=== PATIENT | male | born 1995 | race Caucasian/White ===

== ENCOUNTER → 2025-01-13 | Outpatient (CLI) | payer BC, SELFPAY ==
[2025-01-13 15:20] LABS: Erythrocyte Sedimentation Rate 3 mm/hr (0-20)
[2025-01-13 15:23] LABS: Alkaline Phosphatase 67 U/L (40-129)
[2025-01-13 15:30] LABS: CRP < 3.00 mg/L (0.0-3.0)
== END | disposition home or self-care (01) ==
LOC: LAB 13:49
PROVIDERS: PCP Nurse Practitioner Family; Referring Provider Internal Medicine Pulmonary Disease; Visit Provider Internal Medicine Pulmonary Disease
DX: R09.1 Pleurisy (principal)
CPT/HCPCS: 36415; 84075; 85652; 86140

== ENCOUNTER → 2025-02-15 | Outpatient (CLI) | payer BC, SELFPAY ==
--- NOTE | 2025-02-15 16:10 | CT_ITS ---
PROCEDURE: CHEST WITHOUT CONTRAST 02/15/2025 REASON FOR EXAM: PLEURISY TECHNIQUE: Chest CT without contrast. Coronal and Sagittal reconstruction series were provided. One or more dose reduction techniques were used (e.g., Automated exposure control, adjustment of the mA and/or kV according to patient size, use of iterative reconstruction technique RADIATION DOSE SUMMARY: CTDlvol: 14.9 mGy DLP: 529 mGycm COMPARISON: None FINDINGS: Lymph nodes: No significant lymphadenopathy. Heart and Vasculature: Normal heart size. No coronary calcification. The ascending thoracic aorta measures 4.0 cm in diameter at the level of the main pulmonary artery. Lungs and Airways: Central airways are clear. Lungs are clear. No pneumothorax. Pleura: No pleural effusion. Upper Abdomen: Unremarkable. Bones: No displaced rib fracture. CT/Chest without Contrast IMPRESSION: 1. No acute cardiopulmonary or osseous abnormality. 2. Ascending thoracic aorta measures 4.0 cm in diameter, which may be overesti mated on this nongated exam. Reading Location: [facility]
== END | disposition home or self-care (01) ==
LOC: CT 16:07
PROVIDERS: PCP Nurse Practitioner Family; Referring Provider Internal Medicine Pulmonary Disease; Visit Provider Internal Medicine Pulmonary Disease
DX: R09.1 Pleurisy (principal)
CPT/HCPCS: 71250

== ENCOUNTER → 2025-04-26 | Outpatient (CLI) | payer BC, SELFPAY ==
--- NOTE | 2025-04-26 14:58 | CT_ITS ---
PROCEDURE: CTA CHEST W/WO CONTRAST 04/26/2025 REASON FOR EXAM: CHEST PAIN, ENLARGE AORTA TECHNIQUE: CTA CHEST W/WO CONTRAST Multiplanar Sagittal and Coronal images were obtained. One or more dose reduction techniques were used (e.g., Automated exposure control, adjustment of the mA and/or kV according to patient size, use of iterative reconstruction technique). RADIATION DOSE SUMMARY: CTDlvol: 27 mGy DLP: 501 mGycm COMPARISON: 02/16/2025 FINDINGS: Unremarkable base of neck and axilla. Normal esophagus. Normal heart size. No aortic dissection. No central pulmonary embolism. Mild thoracic spine scoliosis. No acute chest wall findings. No acute upper abdominal findings. Dilated ascending aorta, maximum cross-section 4.2 x 4.3 cm. Mildly tortuous thoracic aorta. No calcified plaque. Three-vessel arch. Central airways are patent. Dependent atelectasis. No consolidation, effusion or pneumothorax. CT/CTA Chest W/WO Contrast IMPRESSION: Dilated ascending aorta, 4.3 cm maximum cross-section. No acute chest pathology. Reading Location: [facility]
--- OUTSIDE RECORDS SUMMARY | 2025-04-26 20:15 | XMS RPT_ITS | CCD ---
Author Organization [facility] Care Team Providers Care Preassembler And Inspector Name Role Phone JAMES WATER POLLUTION CONTROL TECHNICIAN - CAMP BOSS, WILL Hauser Primary Care Phys ician RIVAS WATER POLLUTION CONTROL TECHNICIAN-CAMP BOSS, MONY Attending Revavaraymond RAMIREZ WATER POLLUTION CONTROL TECHNICIAN - CAMP BOSS, WILL Hauser Primary Care U navailable JAMES WATER POLLUTION CONTROL TECHNICIAN - CAMP BOSS, WILL Hauser Primary Care U navailable JAMES WATER POLLUTION CONTROL TECHNICIAN - CAMP BOSS, WILL Hauser Attending U navailable JAMES WATER POLLUTION CONTROL TECHNICIAN - CAMP BOSS, WILL Hauser Primary Care U navailable JAMES WATER POLLUTION CONTROL TECHNICIAN - CAMP BOSS, WILL Hauser Attending U navailable JAMES WATER POLLUTION CONTROL TECHNICIAN - CAMP BOSS, WILL Hauser Primary Care U navailable JAMES WATER POLLUTION CONTROL TECHNICIAN - CAMP BOSS, WILL Hauser Attending U navailable James LEATHER STRIPPING MACHINE OPERATOR-C, Will Mckeon Primary Care Provi fl[place] Dr. Freddie Alvarez MD, V Attending Provider Dr. Freddie Alvarez MD, V Referring Provider [phone] Unavailable Primary Care Provider Unavailabl e SIBILIA, FREDDIE Referring Unavailable SIBILIA, FREDDIE Attending Unavailable SIBILIA, FREDDIE Referring Unavailable SIBILIA, FREDDIE Attending Unavailable SIBILIA, FREDDIE Referring Unavailable SIBILIA, FREDDIE Attending Unavailable SIBILIA, FREDDIE Referring Unavailable SIBILIA, FREDDIE Attending Unavailable SIBILIA, FREDDIE Attending Unavailable SIBILIA, FREDDIE Referring Unavailable Childress LEATHER STRIPPING MACHINE OPERATOR-C, Will Mckeon Referring Provider Eugene MASTERSON, Dr. Gomes Attending Provider James LEATHER STRIPPING MACHINE OPERATOR, Will Mckeon Primary Care Unav ailable Freddie Alvarez V Referring Unavailable Sibelizabeth, Freddie Liang Attending Unavailable James LEATHER STRIPPING MACHINE OPERATOR, Will Mckeon Primary Care Unav ailable Sibilia, Freddie Liang Referring Unavailable Sibilia, Freddie Liang Attending Unavailable JamesWill davies NP Primary Care Unav ailable EugeneEliseo Attending Unavailable Will Ramirez NP Primary Care Unav ailable EugeneEliseo apodaca Attending Unavailable James FANG, Will Mckeon Referring Unav ailable Medications Current Medications Medication Drug Class(es) Dates Sig (Normalized) Sig (Original) fexofenadine hydrochloride 60 mg oral tablet (1 source) Histamine-1 Receptor Antagonist Start: 03-27-2025 take 1 tablet by mouth twice daily as needed Fexofenadine (Myesha Allergy) 60 mg tablet Active 60 mg PO TWICE A DAY as needed March 27, 2025 12:00am 30 actuat fluticasone furoate 0.2 mg/actuat / vilanterol 0.025 mg/actuat dry powder inhaler (1 source) Corticosteroid, beta2-Adrenergic Agonist Start: 03-27-2025 Fluticasone Furoate-Vilanterol (Breo Ellipta) 200-25 mcg/dose blister with device Active 1 NMA INHALATION Q24H March 27, 2025 12:00am gabapentin 100 mg oral capsule (2 sources) Anti-epileptic Agent Start: 03-27-2025 take 1 capsule by mouth three times daily Gabapentin 100 mg capsule Active 100 mg PO THREE TIMES A DAY March 27, 2025 12:00am Start: 04-03-2023 End: 04-17-2023 take 1 tablet by mouth every hour, then take 1 tablet by mouth once daily gabapentin 300 mg/24 hours oral tablet, extended release Dose : 300 mg = 1 tab(s), Oral, qDay, Fill Date: 04/03/2023, # 14 tab(s), 0 Refill(s), Pharmacy: [facility]/pharmacy #[id number], Pain of left shoulder region Radiculopathy of arm, 172.1, cm, 04/03/23 14:55:00 EDT, Height, 78.3 Start Date: 04/03/23 Stop Date: 04/17/23 Status: Ordered Ibuprofen (2 sources) Nonsteroidal Anti-inflammatory Drug Start: 12-13-2019 ibuprofen 0 Refill(s) Start Date: 12/13/19 Status: Ordered meloxicam 15 mg oral tablet (3 sources) Nonsteroidal Anti-inflammatory Drug Start: 02-03-2024 Mobic 15 mg oral tablet Dose : 15 mg = 1 tab(s), Oral, qDay, # 30 tab(s), 1 Refill(s), [id number], Left shoulder pain, 172, cm, 02/03/24 15:57:00 EDT, Height, kg, 02/03/24 15:57:00 EDT, Dosing Weight Start Date: 02/03/24 Status: Ordered Start: 02-17-2023 End: 03-19-2023 Mobic 15 mg oral tablet Dose : 15 mg = 1 tab(s), Oral, qDay, # 30 tab(s), 0 Refill(s), [id number], Pain of left shoulder region Bursitis of left shoulder, 174, cm, 02/17/23 13:13:00 EDT, Height Start Date: 02/17/23 Stop Date: 03/19/23 Status: Ordered 24 hr metoprolol succinate 25 mg extended release oral tablet (2 sources) beta-Adrenergic Daniel Start: 02-17-2023 metoprolol succinate 25 mg oral TABLET extended release Dose : 25 mg = 1 tab(s), Oral, qDay, # 30 tab(s), 0 Refill(s), [id number], Chest pain, acute, 174, cm, 02/17/23 13:13:00 EDT, Height Start Date: 02/17/23 Status: Ordered nortriptyline 25 mg oral capsule (2 sources) Tricyclic Antidepressant Start: 02-17-2023 End: 03-19-2023 nortriptyline 25 mg oral capsule Dose : 25 mg = 1 cap(s), Oral, qHS, # 30 cap(s), 0 Refill(s), Pharmacy: [facility]/pharmacy #[id number], Insomnia, 174, cm, 02/17/23 13:13:00 EDT, Height Start Date: 02/17/23 Stop Date: 03/19/23 Status: Ordered omeprazole 20 mg delayed release oral capsule (2 sources) Proton Pump Inhibitor Start: 03-27-2025 take 1 capsule by mouth once daily Omeprazole 20 mg capsule,delayed release(DR/EC) Active 20 mg PO daily March 27, 2025 12:00am Start: 02-03-2024 End: 05-03-2024 omeprazole 20 mg oral delaye d release capsule Dose : 20 mg = 1 cap(s), Oral, qDay, # 90 cap(s), 0 Refill(s), Pharmacy: [facility]/pharmacy #[id number], GERD (gastroesophageal reflux disease), 172, cm, 02/03/24 15:57:00 EDT, Height, kg, 02/03/24 15:57:00 EDT, Dosing Weight Start Date: 02/03/24 Stop Date: 05/03/24 Status: Ordered Completed/Discontinued Medications Medication Drug Class(es) Dates Sig (Normalized) Sig (Original) diclofenac sodium 75 mg delayed release oral tablet (1 source) Nonsteroidal Anti-inflammatory Drug Start: 05-15-2023 End: 07-14-2023 diclofenac sodium 75 mg oral delayed release tablet Dose : 75 mg = 1 tab(s), Oral, BID, # 60 tab(s), 1 Refill(s), Pharmacy: [id number], Pain of left shoulder region Radiculopathy of arm, 172, cm, 05/15/23 14:51:00 EDT, Height, kg, 05/15/23 14:51:00 EDT, Dosing Weight Start Date: 05/15/23 Stop Date: 07/14/23 Status: Ordered Problems Problem Classification Problem Date Documented Date Episodic/Chronic Diseases of white blood cells (1 source) Leukocytosis 04-24-2023 Chronic Esophageal disorders (2 sources) Gastroesophageal reflux disease; Translations: [Gastro-esophageal reflux disease without esophagitis] 02-03-2024 Chronic Heart valve disorders (2 sources) Aortic valve regurgitation 04-03-2023 Chronic Comment on above: 03/06/2023 Echocardi ogram: Summary: 1. Left ventricle: The cavity size is normal. Wall thickness is normal. Systolic function is normal. The estimated ejection fraction is 55-60%. Wall motion is normal; there are no regional wall motion abnormalities. Normal diastolic function. 2. Aortic valve: There is mild regurgitation. 3. Right ventricle: The RV systolic pressure by Doppler is 26 mm Hg. Malaise and fatigue (3 sources) Fatigue; Translations: [Other fatigue] Episodic Nonspecific chest pain (20 sources) Tight chest; Translations: [Chest pain] Onset: 01-21-2025 04-24-2023 Episodic Other circulatory disease (1 source) Disorder of aorta; Translations: [Other specified disorders of arteries and arterioles] 04-04-2025 Chronic Other circulatory disease (2 sources) Other specified disorders of arteries and arterioles; Translations: [Other specified disorders of arteries and arterioles] Onset: 04-04-2025 Chronic Other connective tissue disease (2 sources) Bursitis of shoulder 02-17-2023 Episodic Other lower respiratory disease (2 sources) Dyspnea on exertion; Translations: [Other forms of dyspnea] 04-04-2025 Episodic Other lower respiratory disease (2 sources) Other forms of dyspnea; Translations: [Other forms of dyspnea] Onset: 04-04-2025 Episodic Other nervous system disorders (2 sources) 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 Other nervous system disorders (1 source) Skin sensation disturbance; Translations: [Unspecified disturbances of skin sensation] Episodic Other non-traumatic joint disorders (4 sources) Shoulder pain 02-17-2023 Episodic Other upper respiratory disease (4 sources) Seasonal allergy 02-17-2023 Chronic Pleurisy; pneumothorax; pulmonary collapse (3 sources) Pleurisy; Translations: [Pleurisy] Onset: 03-09-2025 03-27-2025 Episodic Residual codes; unclassified (2 sources) Cold and clammy skin 02-17-2023 Episodic Residual codes; unclassified (2 sources) Insomnia 02-17-2023 Episodic Unclassified (12 sources) Patient encounter status 06-24-2022 Unclassified (1 source) Pain of left shoulder region 02-03-2024 Results Test Name Value Interpretation Reference Range Facility Cardiology Visit Reporton Cardiology Visit Report [facility] [address] [place] [address] OFFICE VISIT Date of Service: 04/04/25 MR#: [id number] Acct: [id number] Name: MYNOR TURCIOS Rep #: [id number] : 1995 Provider: Dr. Eliseo Knight MD Age/Sex: 29/M Location: [facility] Status: Signed HPI HPI History of Present Illness Details: This gentleman has no significant past medical history. He has been referred to us for a finding of borderline dilatation of the ascending aorta. The ascending aorta was noted to be 4 cm on a nondedicated CT of the chest. Patient complains of left-sided chest discomfort for about 2 years now. According to him, it has been constant through all this time. He goes to sleep with it and wakes up with it. It does not exacerbate with activity. Only if he presses hard on the left side of his chest, it is that his discomfort exacerbates. No associated shortness of breath. For the past year or so, patient has also been complaining of shortness of breath with exertion. He gets short of breath with moderate to strenuous exertion. Denies any orthopnea PND. No ankle edema. Denies any palpitations. He saw pulmonology who started him on a bronchodilator steroid combination inhaler. Per patient, it has not made any difference to his symptoms. Denies any lightheadedness. No syncope or presyncope. Denies any severe headaches. No abdominal pain. No ankle edema. No family history of premature coronary artery disease. No history of aortic disease. Intake Vital Signs 04/04/25 08:35 Height 5 ft 8 in Weight: 200 lb BMI 30.4 BP 120/80 Blood Pressure Location Lt brachial Position Sitting Respiration 18 Pulse 66 Pulse Source Monitor Temp 97.5 F L Intake Visit Reasons: ENLARGED AORTA (SIBILIA) Director Of Instruction Required: No Accompanied by: Self Is patient in pain?: No Allergies No Known Allergies Allergy (Unverified 04/04/25 08:31) Medications ???Medication ???Instructions ???Recorded ???Confirmed ???Type fexofenadine 60 mg tablet (Myesha 60 mg PO BID PRN 03/27/25 History Allergy) fluticasone furoate 200 1 inh inhalation Q24H 03/27/2510/29 History mcg-vilanterol 25 mcg/dose inhalation powder (Breo Ellipta) gabapentin 100 mg capsule 100 mg PO TID 03/27/25 04/04/25 Hi story omeprazole 20 mg capsule,delayed 20 mg PO QDAY 03/27/25 04/04/25 Hi story release Have you fallen in the past year?: No PFSH Medical History Allergic rhinitis Enlarged aorta Pleurisy GERD (gastroesophageal reflux disease) Surgical History H/O partial adrenalectomy History of tonsillectomy Family History Father Kidney disease Hypertension Mother Hypertension Hyperlipidemia Alcoholism Social History Smoking Status: Former smoker alcohol intake: current substance use type: does not use caffeine: No ROS Const Const: Negative for fatigue or weakness Eyes Eyes: Negative for change in vision ENT ENT: Negative for dizziness or balance problems Cardio Chest Pain: Yes (pressure left rib area) Frequency: daily Character: other (pressure) Onset: other (continuous) Location: left chest (rib area) Duration: continuous Palpitations: No Edema: None Resp Respiratory: Positive for SOB with activity; Negative for SOB at rest or SOB orthopnea SOB lying down GI GI: Negative nausea or heartburn Musc Musc: Negative for balance problems Neuro Neuro: Positive for lightheadedness (after activity); Negative for dizziness, near syncope, syncope or weakness Endo Endo: Negative for fatigue Cardiology Exam Exam Narrative Comfortable. No apparent distress. No carotid bruits. Heart sounds 1 and 2 normal. No murmurs or rubs are noted. Chest is clear to auscultation bilaterally. Abdomen is soft. Nontender. No abdominal bruits noted. Alert oriented x 3. No ankle edema. Both radial pulses are equal and symmetrical. Supplemental Info Supplemental Information Labs: No Data to Display Diagnostics: No Data to Display Pulmonary: No Data to Display Past Visits: Cardiology Visit 04/04/25 Assessment and Plan Assessment and Plan (1) Dyspnea on exertion: Status: Chronic Plan: Patient complaining of dyspnea on exertion. Will check an echocardiogram. Also check exercise stress echo. (2) Chest pain: Status: Chronic Plan: Atypical. Noncardiac. Patient counseled. Reassured. Follow-up with PCP (3) Enlarged aorta: Status: Suspected Plan: CT scan reported as showing ascending aorta measuring at 4.0 cm. However (more content not included)... Normal [facility] Progress Noteon 02-18-2025 Progress Note [facility] [place] [address] [place] [address] Dept: [phone] Dept PHYSICAL THERAPY TREATMENT Patient Name: Mynor Turcios : 1995 Date of Service: 02/18/2025 Referring Provider: Ferddie Alvarez MD Visit #: 5 Diagnosis: Chest pain, unspecified type Mechanism of injury: insidious onset and worsening of pain Patient Preferences: Mynor Precautions/Red Flags: None Subjective Pt reported he still has pain about twice a week. Stretching is kind of helping. Compliance with HEP: Yes Objective Objective measurements not taken today. Treatment Therapeutic Exercise Therapeutic Exercise Activity 6: warm up Activity 6 Comment: UBE L3 2'/2' Therapeutic Exercise Activity 7: tband updated to HEP Activity 7 Comment: charlie shoulder ER green 3x10, serratus press green 3x10, bent row 2x10 blue Therapeutic Exercise Activity 8: lat pull down CC Activity 8 Comment: 50# 2x10 (allowing for stretch in between reps) Therapeutic Exercise Activity 10: thoracic extension updated to HEP Activity 10 Comment: on gabonese ball 2x10 Home Exercise Program: Progressed home exercise program Assessment Skilled physical therapy interventions utilized to improve patient?s impairments and work towards established goals. Patient response to treatment: Progressed and updated HEP this visit. Pt tolerated all activities well. No C/O pain with activity. Slow progress towards improving pain at this time. Patient will benefit from continued physical therapy to meet therapy goals. The rationale for today?s treatment was explained to the patient. Verbal cues were provided for correct form with all exercises. Advised patient to continue with Home Exercise Program (HEP). Goals General/Ortho Patient will reduce pain at worst to 2 out of 10 for improved ability to perform HEP (Progressing) Start: 01/21/25 Expected End: 04/22/25 Patient will report at least 50% improvement in breathing with exertion for improved health and wellness prior (Progressing) Start: 01/21/25 Expected End: 04/22/25 Patient will improve PeC, LAT, tricep, flexibility in order to reach and lift further without pain (Progressing) Start: 01/21/25 Expected End: 04/22/25 Patient will be independent with home exercise program (Progressing) Start: 01/21/25 Expected End: 04/22/25 Plan Plan for next session: Recheck with PT. Time Entry Total Treatment Time Start Time: 924 Stop Time: 949 Time Calculation (min): 25 min PT Therapeutic Procedures Time Entry Therapeutic Exercise Time Entry: Tadeo Cook, AUTO BODY ESTIMATOR Normal [facility] Chest without Contraston Chest without Contrast [facility] [address] [place] [address] Chest without Contrast MR#: [id number] Acct: [id number] Name: MYNOR TURCIOS Rep #: [id number] : 1995 M 29 From: Tin Petit MD PCP: LULI RichardC Status: REG CLI Study: Chest without Contrast Date of Exam: 02/15/25 Exam# [id number] Ordering Dr: Freddie Alvarez MD PROCEDURE: CHEST WITHOUT CONTRAST 02/15/2025 REASON FOR EXAM: PLEURISY TECHNIQUE: Chest CT without contrast. Coronal and Sagittal reconstruction series were provided. One or more dose reduction techniques were used (e.g., Automated exposure control, adjustment of the mA and/or kV according to patient size, use of iterative reconstruction technique RADIATION DOSE SUMMARY: CTDlvol: 14.9 mGy DLP: 529 mGycm COMPARISON: None FINDINGS: Lymph nodes: No significant lymphadenopathy. Heart and Vasculature: Normal heart size. No coronary calcification. The ascending thoracic aorta measures 4.0 cm in diameter at the level of the main pulmonary artery. Lungs and Airways: Central airways are clear. Lungs are clear. No pneumothorax. Pleura: No pleural effusion. Upper Abdomen: Unremarkable. Bones: No displaced rib fracture. CT/Chest without Contrast IMPRESSION: 1. No acute cardiopulmonary or osseous abnormality. 2. Ascending thoracic aorta measures 4.0 cm in diameter, which may be overestimated on this nongated exam. Reading Location: [id number] CC: LEATHER STRIPPING MACHINE OPERATOR-C Will Ramirez; Dr. Freddie Alvarez MD Photoengraving Etcher Apprentice: Signed [facility] Progress Noteon 02-11-2025 Progress Note [facility] [place] [address] [place] [address] Dept: [phone] Dept PHYSICAL THERAPY TREATMENT Patient Name: Mynor Turcios : 1995 Date of Service: 02/11/2025 Referring Provider: Freddie Alvarez MD Visit #: 4 Diagnosis: Chest pain, unspecified type Mechanism of injury: insidious onset and worsening of pain Patient Preferences: Mynor Precautions/Red Flags: None Subjective Pt reports 3/10 pain this date Compliance with HEP: Yes Objective Objective measurements not taken today. Treatment Home Exercise Program: Deferred Assessment Skilled physical therapy interventions utilized to improve patient?s impairments and work towards established goals. Patient response to treatment: Added open book stretch w/ pec stretch to reduce tightness and discomfort. Pt needs instructions w/ exercises to improve technique and flexibility w/ good follow through. No increased pain reported. Patient will benefit from continued physical therapy to improve flexibility and strength to reduce pain w/ ADLs and to progress towards ST and LTGs The rationale for today?s treatment was explained to the patient. Verbal cues were provided for correct form with all exercises. Advised patient to continue with Home Exercise Program (HEP). Goals General/Ortho Patient will reduce pain at worst to 2 out of 10 for improved ability to perform HEP (Progressing) Start: 01/21/25 Expected End: 04/22/25 Patient will report at least 50% improvement in breathing with exertion for improved health and wellness prior (Progressing) Start: 01/21/25 Expected End: 04/22/25 Patient will improve PeC, LAT, tricep, flexibility in order to reach and lift further without pain (Progressing) Start: 01/21/25 Expected End: 04/22/25 Patient will be independent with home exercise program (Progressing) Start: 01/21/25 Expected End: 04/22/25 Plan Plan for next session: strengthening and flexibility as pt tolerates Time Entry Total Treatment Time Start Time: 1000 Stop Time: 1040 Time Calculation (min): 40 min PT Therapeutic Procedures Time Entry Therapeutic Exercise Time Entry: 40 Liliam Sood PTA Normal [facility] Progress Noteon 02-04-2025 Progress Note [facility] [place] [address] [place] [address] Dept: [phone] Dept PHYSICAL THERAPY TREATMENT Patient Name: Mynor Turcios : 1995 Date of Service: 02/04/2025 Referring Provider: Freddie Alvarez MD Visit #: 3 Diagnosis: Chest pain, unspecified type Mechanism of injury: insidious onset and worsening of pain Patient Preferences: Garth Precautions/Red Flags: None Subjective I am feeling about the same. 2/10 pain right now. Compliance with HEP: Yes Objective Objective measurements not taken today. Treatment Therapeutic Exercise # of Activities: 10 Therapeutic Exercise Activity 6: warm up Activity 6 Comment: UBE L2 2'/2' Therapeutic Exercise Activity 7: standing QL stretch Activity 7 Comment: in doorway 30 x2 Therapeutic Exercise Activity 8: lat pull down CC Activity 8 Comment: 50# 2x10 (allowing for stretch in between reps) Therapeutic Exercise Activity 9: prone Activity 9 Comment: baby cobra hands down x10, shoulder I/T/Y 1x15 2# Therapeutic Exercise Activity 10: Pulldowns Activity 10 Comment: 40# 2x15 Home Exercise Program: Deferred Assessment Skilled physical therapy interventions utilized to improve patient?s impairments and work towards established goals. Patient response to treatment: Continued per POC with focus on postural strengthening. Initiated standing pulldowns to further progress strength. Pt responded well to progressions and denied increased pain on conclusion. Patient will benefit from continued physical therapy to decrease pain, improve strength and stabilization, and return to PLOF. The rationale for today?s treatment was explained to the patient. Verbal cues were provided for correct form with all exercises. Advised patient to continue with Home Exercise Program (HEP). Goals General/Ortho Patient will reduce pain at worst to 2 out of 10 for improved ability to perform HEP (Progressing) Start: 01/21/25 Expected End: 04/22/25 Patient will report at least 50% improvement in breathing with exertion for improved health and wellness prior (Progressing) Start: 01/21/25 Expected End: 04/22/25 Patient will improve PeC, LAT, tricep, flexibility in order to reach and lift further without pain (Progressing) Start: 01/21/25 Expected End: 04/22/25 Patient will be independent with home exercise program (Progressing) Start: 01/21/25 Expected End: 04/22/25 Plan Plan for next session: Progress stretching and postural strengthening as pt can tolerate. Consider banded wall walks or bilat ER for further postural strengthening. Time Entry Total Treatment Time Start Time: 914 Stop Time: 939 Time Calculation (min): 25 min PT Therapeutic Procedures Time Entry Therapeutic Exercise Time Entry: 25 Ninfa Sheppard PTA Normal [facility] Progress Noteon 01-28-2025 Progress [facility] [address] [place] [address] Dept: [phone] Dept PHYSICAL THERAPY TREATMENT Patient Name: Mynor Turcios : 1995 Date of Service: 01/28/2025 Referring Provider: Freddie Alvarez MD Visit #: 2 Diagnosis: Chest pain, unspecified type Mechanism of injury: insidious onset and worsening of pain Patient Preferences: Mynor Precautions/Red Flags: None Subjective Pt reported he gets relief for a couple hours after performing HEP. Pt reported pressure along L side sib cage today but not painful. Compliance with HEP: Yes Objective Objective measurements not taken today. Treatment Therapeutic Exercise # of Activities: 10 Therapeutic Exercise Activity 6: warm up Activity 6 Comment: UBE L2 2'/2' Therapeutic Exercise Activity 7: standing QL stretch Activity 7 Comment: in doorway 30 x2 Therapeutic Exercise Activity 8: lat pull down CC Activity 8 Comment: 50# 2x10 (allowing for stretch in between reps) Therapeutic Exercise Activity 9: prone Activity 9 Comment: baby cobra hands down x10, shoulder I/T/Y 1x15 2# Home Exercise Program: Deferred Assessment Skilled physical therapy interventions utilized to improve patient?s impairments and work towards established goals. Patient response to treatment: Pt was appropriately challenged by progressions and felt QL stretch in doorway was quite effective. L shoulder fatigued quickly with prone shoulder strengthening. HEP was updated with shoulder I/T/Y, baby cobra and QL stretch. Patient will benefit from continued physical therapy to meet therapy goals. The rationale for today?s treatment was explained to the patient. Verbal cues were provided for correct form with all exercises. Advised patient to continue with Home Exercise Program (HEP). Goals General/Ortho Patient will reduce pain at worst to 2 out of 10 for improved ability to perform HEP (Progressing) Start: 01/21/25 Expected End: 04/22/25 Patient will report at least 50% improvement in breathing with exertion for improved health and wellness prior (Progressing) Start: 01/21/25 Expected End: 04/22/25 Patient will improve PeC, LAT, tricep, flexibility in order to reach and lift further without pain (Progressing) Start: 01/21/25 Expected End: 04/22/25 Patient will be independent with home exercise program (Progressing) Start: 01/21/25 Expected End: 04/22/25 Plan Plan for next session: Continue with stretching and postural strengthening Time Entry Total Treatment Time Start Time: 901 Stop Time: 927 Time Calculation (min): 26 min PT Therapeutic Procedures Time Entry Therapeutic Exercise Time Entry: Tadeo Cook, NAWAF Normal [facility] Progress Noteon 01-21-2025 Progress Note [facility] [place] [address] [place] [address] Dept: [phone] Dept PHYSICAL THERAPY EVALUATION Patient Name: Mynor Turcios : 1995 Date of Service: 01/21/2025 Referring Provider: Freddie Alvarez MD Visit #: 1 Diagnosis: Chest pain, unspecified General Information Mechanism of injury: insidious onset and worsening of pain Patient Preferences: Mynor Precautions/Red Flags: None Fall Risk: No 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 PSHX: Mynor has no past surgical history on file. Have you experienced any anxiety or depression?: No Have you experienced thoughts of self-harm or suicidal thoughts?: No Social Drivers of Health Reviewed: Yes Physician follow-up appointment?: Yes Subjective Chief Complaint: Mynor says he has been having pressure on the left side of his chest and collarbone. Also down the left side of the rib from the back traveling to the front. Says he has seen a lot of Doctors but they haven't really come up with any reason as to why it hurts. Deep breaths and breathing are the hardest, also will sometimes get shortness of breath from it. Says he was told he is not really using his left side of his lungs due to the pressure being placed on it. This has been going on for about a year and a half now. Pain: Current: 0/10 Best: 0/10 Worst: 3-4/10 Symptoms Relieved by: n/a Prior Level of Function: independent with no difficulty Current Level of Function: is getting short of breath with pain with running, activity takes his mind off of it. Patient?s Stated Goal: to get rid of the pain Outcome Measures N/a Objective BACK/RIBS Observation: forward head and slightly rounded shoulders Gait: WFL Date Recorded: 01/21/2025 Trunk AROM Percentage Flexion (flex) 100 Extension (ext) 100 Right side bending (SBR) 100 Left side bending (SBL) 100 Right rotation (rotR) 100 Left rotation (rotL) 100 SHOULDER Observation: forward head and rounded shoulders Cervical Spine AROM: WFL Elbow AROM: WFL Date Recorded: 01/21/2025 Upper Extremity ROM (degrees) Right Left AROM AROM Shoulder Flexion 165 170 Shoulder Abduction 185 185 Upper Extremity Strength (*pain) Date 01/21/2025 R L Shoulder Flexion 5/5 5/5 Shoulder ABD 5/5 5/5 Shoulder ER 5/5 5/5 Shoulder IR 5/5 5/5 Elbow Flex 5/5 5/5 Elbow Ext 5/5 5/5 Wrist Flex 5/5 5/5 Wrist Ext 5/5 5/5 NT = not tested Scapular Strength Right Left Lower Trapezius 5/5 5/5 Middle Trapezius 5/5 5/5 Joint mobility: reduced thoracic spine and rib mobility via p/a assessment Palpation: tender to palpation at L lat and L T7-12 area paraspinals and cage Flexibility: reduced pec, lat, UT, and triceps flexibility Special Tests: Not indicating Assessment Mynor is a 29 y.o. patient with chief complaint of chest and rib pain as well as difficulty with breathing, who presents with signs and symptoms consistent with referring diagnosis. Mynor presents today with tenderness in the pec rib, and LAT area. He also has tightness in these areas. This could be contributing to increased pressure throughout the thoracic spine and ribs compressing down on the lungs causing difficulty with breathing after exertion. This is impacting his ability to function fully. He would benefit from skilled physical therapy to address decreased range of motion, decreased endurance, pain, soft tissue impairment, and impaired functional activities. Evaluation complexity is low secondary to: patient has 1-2 personal factors and/or comorbidities that will affect plan of care, therapy will be addressing 1-2 elements, and clinical presentation is stable. Body Systems Affected: musculoskeletal and neuromuscular Rehab Potential: Good Learning Preferences: demonstration and explanation Barriers to Rehab: none Goals General/Ortho Patient will reduce pain at worst to 2 out of 10 for improved ability to perform HEP (Initiated) Start: 01/21/25 Expected End: 04/22/25 Patient will report at least 50% improvement in breathing with exertion for improved health and wellness prior (Initiated) Start: 01/21/25 Expected End: 04/22/25 Patient will improve PeC, LAT, tricep, flexibility in order to reach and lift further without pain (Initiated) Start: 01/21/25 Expected End: 04/22/25 Patient will be independent with home exercise program (Initiated) Start: 01/21/25 Expected End: 04/22/25 Plan Frequency and Duration: 1/wk for 4 weeks Therapeutic Contents: client education, group therapy, home exercise program, manual therapy techniques, neuromuscular re-education, therapeutic activities, therapeutic exercise, trigger point dry needle, and modalities as needed Plan for next session: assess HEP response, progress stretching and periscapular strengthening, initiate STM for releas (more content not included)... Normal [facility] Alkaline Phosphataseon 01-13 ALK PHOS 67 U/L Normal 40-129 [facility] Comment on above: Performed By: #### L 101.9900, L501.6710, L501.4305 #### [facility] [address] [place], [address] CRPon 01-13-2025 C-REACTIVE PROT < 3.00 Normal 0.0-3.0 [facility] Comment on above: Performed By: #### L 101.9900, L501.6710, L501.4305 #### [facility] [address] [place], [address] CRP [Mass/Vol]Ordered By: Bella Alvarez on 01-13-2025 C-Reactive Protein Extended Range < 3.00 mg/L 0.0-3.0 [facility] Erythrocyte Sed Rateon 01-13 SED RATE 3 mm/hr Normal 0-20 [facility] Comment on above: Performed By: #### L 101.9900, L501.6710, L501.4305 #### [facility] [place], [address] Erythrocyte sedimentation ra teOrdered By: Freddie Alvarez on 01-13-2025 ESR (Bld) [Velocity] 3 mm/h 0-20 [facility] Serum or plasma C reactive p rotein measurement (mass/volume)Ordered By: Freddie Alvarez on 01-13-2025 CRP [Mass/Vol] mg/L 0.0-3.0 [facility] Serum or plasma alkaline onofre sphatase measurementOrdered By: Freddie Alvarez on 01-13-2025 ALP [Catalytic activity/Vol] 67 U/L 40-129 [facility] MRI SHOULDER W/O CONTRAST LE FTon 02-25-2024 MRI SHOULDER W/O CONTRAST LEFT ORIGINAL EXAMINATION: MRI OF THE LEFT SHOULDER WITHOUT CONTRAST 02/23/2024 3:34 pm TECHNIQUE: Multiplanar multisequence MRI of the left shoulder was performed without the administration of intravenous contrast. COMPARISON: Left shoulder radiographs 04/06/2023 HISTORY: ORDERING SYSTEM PROVIDED HISTORY: Reason for Exam: chronic left shoulder pain FINDINGS: ROTATOR CUFF: Intact supraspinatus, infraspinatus, subscapularis, and teres minor tendons. No significant muscle edema or atrophy is identified. BICEPS TENDON: Intact vertical and horizontal portions of the long head of the biceps tendon. LABRUM: Small region of focal detachment in the anterosuperior glenoid labrum is consistent with a small sublabral foramen. The visualized glenoid labrum is intact. No paralabral cyst. GLENOHUMERAL JOINT: Paucity of joint fluid.. No evidence of high-grade cartilage loss. Normal alignment. No inflammatory changes in the rotator interval. No obvious abnormal thickening of inferior joint capsule. AC JOINT AND ACROMIOCLAVICULAR ARCH: No significant acromial downsloping or subacromial spur. No significant degenerative changes. Intact acromioclavicular and coracoclavicular ligaments. No significant subacromial/subdeltoi d bursitis. BONE MARROW: No evidence of fracture. Normal marrow signal. 0.7 cm T1 hypointense T2 hypointense lesion in the anterior humeral head may represent a small bone island. OUTLET SPACES: Normal MRI appearance of the quadrilateral space. No significant narrowing of the supraspinatus outlet. IMPRESSION: No significant/obvious internal derangement within the shoulder. Paucity of fluid in the superior glenohumeral joint space. This can be incidental but seen with adhesive capsulitis, however this should be diagnosed clinically. I have personally reviewed the images of this examination and agree with the resident's findings and interpretation. Interpreted by: Marko Parrish MD Preliminary Report By: Ken Padron Electronically signed By Marko Parrish MD Dictated Date: 02/24/2024 9:41:51 AM Prelim Date: 02/25/2024 8:29:24 AM Sign Date: 02/25/2024 8:29:24 AM Ordering Provider: MONY HATHAWAY [facility]) XR CHEST 2 VIEWSon 3 XR CHEST 2 VIEWS ORIGINAL EXAMINATION: TWO XRAY VIEWS OF THE CHEST04/28/2023 4:28 pm COMPARISON: None HISTORY: ORDERING SYSTEM PROVIDED HISTORY: Reason for Exam: chest tightness left anterior aspect for 1 week, slight SOB. FINDINGS: Heart and mediastinum: Cardiomediastinal silhouette is normal. Lungs and pleura: No focal consolidation or pulmonary edema. No pleural effusion or visible pneumothorax. Bones: No acute bony abnormality. IMPRESSION: No acute cardiopulmonary findings. I have personally reviewed the images of this examination and agree with the resident's findings and interpretation. Interpreted by: Daryl Puentes MD Preliminary Report By: Lucero Woodward Electronically signed By Daryl Puentes MD Dictated Date: 04/30/2023 10:01:36 AM Prelim Date: 04/30/2023 11:42:57 AM Sign Date: 04/30/2023 11:42:57 AM Ordering Provider: WILL RAMIREZ [facility] ([place]) ANAon 04-29-2023 Nuclear Ab IF (S) [Titer] 40 {titer} Normal Neg 40 Count includes the [facility]) Comment on above: Result Comment: TAYO Screen and Titer methodology is an immunofluorescent technique utilizing Hep2 Substrate. Performed By: #### D YULI, CMP, ADIFF, ESR, CRP, GFR, ANEU, CBC, LIPID ####[id number] [place], [place] [address]#### TAYO ####[address] [address] .Auto Diffon 04-28-2023 Basophil, Absolute 0.0 10 3/mcL Normal 0.0-0.2 [facility] ([place]) Comment on above: Performed By: #### D YULI, CMP, ADIFF, ESR, CRP, GFR, ANEU, CBC, LIPID #### [place] [address] #### TAYO #### [address] [address] Basophils/100 WBC (Bld) 0.1 % Normal 0.0-2.5 [facility] ([place]) Comment on above: Performed By: #### D YULI, CMP, ADIFF, ESR, CRP, GFR, ANEU, CBC, LIPID #### [place] [address] #### TAYO #### [place] [address] Eosinophil, Absolute 0.0 10 3/mcL Normal 0.0-0.4 [facility] ([place]) Comment on above: Performed By: #### D YULI, CMP, ADIFF, ESR, CRP, GFR, ANEU, CBC, LIPID #### [place] [address] #### TAYO #### [place] [address] Eosinophils/100 WBC (Bld) 0.0 % Normal 0.0-7.0 [facility] ([place]) Comment on above: Performed By: #### D YULI, CMP, ADIFF, ESR, CRP, GFR, ANEU, CBC, LIPID #### [place] [address] #### TAYO #### [place] [address] Lymphocyte, Absolute 0.9 10 3/mcL Normal 0.8-3.9 [facility] ([place]) Comment on above: Performed By: #### D YULI, CMP, ADIFF, ESR, CRP, GFR, ANEU, CBC, LIPID #### [address] [address] #### TAYO #### [address] [address] Lymphocytes/100 WBC (Bld) 6.6 % Low 10.0-50.0 [facility] ([place]) Comment on above: Performed By: #### D YULI, CMP, ADIFF, ESR, CRP, GFR, ANEU, CBC, LIPID #### [address] [address] #### TAYO #### [address] [address] Monocyte, Absolute 0.2 10 3/mcL Normal 0.2-1.0 [facility] ([place]) Comment on above: Performed By: #### D YULI, CMP, ADIFF, ESR, CRP, GFR, ANEU, CBC, LIPID #### [place] [address] #### TAYO #### [address] [address] Monocytes/100 WBC (Bld) 1.5 % Low 1.7-13.0 [facility] ([place]) Comment on above: Performed By: #### D YULI, CMP, ADIFF, ESR, CRP, GFR, ANEU, CBC, LIPID #### [address] [address] #### TAYO #### [address] [address] Neutrophils/100 WBC (Bld) 91.8 % High 37.0-80.0 [facility] ([place]) Comment on above: Performed By: #### D YULI, CMP, ADIFF, ESR, CRP, GFR, ANEU, CBC, LIPID #### [place] [address] #### TAYO #### [address] [address] .GFRon 04-28-2023 GFR 120 ml/min/1.73sqm Normal [facility] ([place]) Comment on above: Result Comment: GFR Population mean for , Non- Americans Ages 20-29 = 116 mL/min/1.73 sq.m. Ages 30-39 = 107 mL/min/1.73 sq.m. Ages 40-49 = 99 mL/min/1.73 sq.m. Ages 50-59 = 93 mL/min/1.73 sq.m. Ages 60-69 = 85 mL/min/1.73 sq.m. Ages 70+ = 75 mL/min/1.73 sq.m. Chronic Kidney Disease: Less than 60 mL/min/1.73 square meters End Stage Renal Disease: Less than 15 mL/min/1.73 square meters Performed By: #### D YULI, CMP, ADIFF, ESR, CRP, GFR, ANEU, CBC, LIPID ####[address] [place], [place] [address]#### TAYO ####[address] [address] GFR Non- 99 ml/min/1.73sqm Normal [facility] ([place]) Comment on above: Result Comment: GFR Population mean for , Non- Americans Ages 20-29 = 116 mL/min/1.73 sq.m. Ages 30-39 = 107 mL/min/1.73 sq.m. Ages 40-49 = 99 mL/min/1.73 sq.m. Ages 50-59 = 93 mL/min/1.73 sq.m. Ages 60-69 = 85 mL/min/1.73 sq.m. Ages 70+ = 75 mL/min/1.73 sq.m. Chronic Kidney Disease: Less than 60 mL/min/1.73 square meters End Stage Renal Disease: Less than 15 mL/min/1.73 square meters Performed By: #### D YULI, CMP, ADIFF, ESR, CRP, GFR, ANEU, CBC, LIPID ####[address] [place], [place] [address]#### TAYO ####[address] [address] .NEUABSon 04-28-2023 Neutrophil, Absolute 11.9 10 3/mcL High 2.9-6.2 [facility] ([place]) Comment on above: Performed By: #### D YULI, CMP, ADIFF, ESR, CRP, GFR, ANEU, CBC, LIPID #### [address] [address] #### TAYO #### [address] [address] CBCon 04-28-2023 Erythrocyte distribution width (RBC) [Ratio] 13.2 % Normal 11.5-14.5 [facility] ([place]) Comment on above: Performed By: #### D YULI, CMP, ADIFF, ESR, CRP, GFR, ANEU, CBC, LIPID #### [place] [address] #### TAYO #### [place] [address] Hematocrit (Bld) [Volume fraction] 41.6 % Low 42.0-52.0 [facility] ([place]) Comment on above: Performed By: #### D YULI, CMP, ADIFF, ESR, CRP, GFR, ANEU, CBC, LIPID #### [place] [address] #### TAYO #### [place] [address] Hgb 14.1 G/dL Normal 14.0-18.0 [facility] ([place]) Comment on above: Performed By: #### D YULI, CMP, ADIFF, ESR, CRP, GFR, ANEU, CBC, LIPID #### [place] [address] #### TAYO #### [address] [address] MCH (RBC) [Entitic mass] 30.0 pg Normal 27.0-31.2 [facility] ([place]) Comment on above: Performed By: #### D YULI, CMP, ADIFF, ESR, CRP, GFR, ANEU, CBC, LIPID #### [place] [address] #### TAYO #### [place] [id number] MCHC 33.9 G/dL Normal 31.8-35.4 [facility] ([place]) Comment on above: Performed By: #### D YULI, CMP, ADIFF, ESR, CRP, GFR, ANEU, CBC, LIPID #### [address] [address] #### TAYO #### [place] [address] MCV (RBC) [Entitic vol] 88.7 fL Normal 80.0-94.0 [facility] ([place]) Comment on above: Performed By: #### D YULI, CMP, ADIFF, ESR, CRP, GFR, ANEU, CBC, LIPID #### [place] [address] #### TAYO #### [place] [address] Platelet 242 10 3/mcL Normal 130-400 [facility] ([place]) Comment on above: Performed By: #### D YULI, CMP, ADIFF, ESR, CRP, GFR, ANEU, CBC, LIPID #### [place] [address] #### TAYO #### [place] [address] Platelet mean volume (Bld) [Entitic vol] 9.8 fL Normal 7.4-10.4 [facility] ([place]) Comment on above: Performed By: #### D YULI, CMP, ADIFF, ESR, CRP, GFR, ANEU, CBC, LIPID #### [place] [address] #### TAYO #### [place] [address] RBC 4.69 10 6/mcL Normal 4.04-6.13 [facility] ([place]) Comment on above: Performed By: #### D YULI, CMP, ADIFF, ESR, CRP, GFR, ANEU, CBC, LIPID #### [place] [address] #### TAYO #### [address] [address] WBC 13.0 10 3/mcL High 4.6-10.8 [facility] ([place]) Comment on above: Performed By: #### D YULI, CMP, ADIFF, ESR, CRP, GFR, ANEU, CBC, LIPID #### [address] [address] #### TAYO #### [place] [address] CMPon 04-28-2023 Albumin Level 4.5 G/dL Normal 3.5-5.0 [facility] ([place]) Comment on above: Performed By: #### D YULI, CMP, ADIFF, ESR, CRP, GFR, ANEU, CBC, LIPID #### [place] [address] #### TAYO #### [place] [address] Albumin/Globulin [Mass ratio] 1.6 {ratio} Normal 1.1-2.5 [facility] ([place]) Comment on above: Performed By: #### D YULI, CMP, ADIFF, ESR, CRP, GFR, ANEU, CBC, LIPID #### [place] [address] #### TAYO #### [address] [address] ALP [Catalytic activity/Vol] 48 U/L Normal 40-135 [facility] ([place]) Comment on above: Performed By: #### D YULI, CMP, ADIFF, ESR, CRP, GFR, ANEU, CBC, LIPID #### [place] [address] #### TAYO #### [place] [id number] ALT [Catalytic activity/Vol] 14 U/L Low 16-63 [facility] ([place]) Comment on above: Performed By: #### D YULI, CMP, ADIFF, ESR, CRP, GFR, ANEU, CBC, LIPID #### [place] [address] #### TAYO #### [place] [address] AST [Catalytic activity/Vol] 10 U/L Normal 10-40 [facility] ([place]) Comment on above: Performed By: #### D YULI, CMP, ADIFF, ESR, CRP, GFR, ANEU, CBC, LIPID #### [place] [address] #### TAYO #### [place] [address] Bili Total 0.3 mg/dL Normal 0.2-1.0 [facility] ([place]) Comment on above: Result Comment: Use of this assay is not recommended for patients undergoing treatment with eltrombopag due to the potential for falsely elevated results. Performed By: #### D YULI, CMP, ADIFF, ESR, CRP, GFR, ANEU, CBC, LIPID #### [place] [address] #### TAYO #### [place] [address] BUN/Creatinine Ratio 16 ratio Normal 7-27 [facility] ([place]) Comment on above: Performed By: #### D YULI, CMP, ADIFF, ESR, CRP, GFR, ANEU, CBC, LIPID #### [place] [address] #### TAYO #### [place] [address] Calcium [Mass/Vol] 9.2 mg/dL Normal 8.4-10.2 [facility] ([place]) Comment on above: Performed By: #### D YULI, CMP, ADIFF, ESR, CRP, GFR, ANEU, CBC, LIPID #### [place] [address] #### TAYO #### [place] [address] Chloride [Moles/Vol] 104 mmol/L Normal 98-107 [facility] ([place]) Comment on above: Performed By: #### D YULI, CMP, ADIFF, ESR, CRP, GFR, ANEU, CBC, LIPID #### [address] [address] #### TAYO #### [address] [address] CO2 [Moles/Vol] 27 mmol/L Normal 22-29 [facility] ([place]) Comment on above: Performed By: #### D YULI, CMP, ADIFF, ESR, CRP, GFR, ANEU, CBC, LIPID #### [place] [address] #### TAYO #### [place] [address] Creatinine [Mass/Vol] 0.91 mg/dL Normal 0.70-1.30 [facility] ([place]) Comment on above: Performed By: #### D YULI, CMP, ADIFF, ESR, CRP, GFR, ANEU, CBC, LIPID #### [place] [address] #### TAYO #### [place] [address] Electrolyte Balance 10.0 mEq/L Normal 4.0-15.0 [facility] ([place]) Comment on above: Performed By: #### D YULI, CMP, ADIFF, ESR, CRP, GFR, ANEU, CBC, LIPID #### [place] [address] #### TAYO #### [place] [address] Globulin 2.9 G/dL Normal [facility] ([place]) Comment on above: Performed By: #### D YULI, CMP, ADIFF, ESR, CRP, GFR, ANEU, CBC, LIPID #### [place] [address] #### TAYO #### [place] [address] Glucose [Mass/Vol] 103 mg/dL Normal 70-105 [facility] ([place]) Comment on above: Performed By: #### D YULI, CMP, ADIFF, ESR, CRP, GFR, ANEU, CBC, LIPID #### [address] [address] #### TAYO #### [address] [address] Potassium [Moles/Vol] 4.2 mmol/L Normal 3.5-5.1 [facility] ([place]) Comment on above: Performed By: #### D YULI, CMP, ADIFF, ESR, CRP, GFR, ANEU, CBC, LIPID #### [address] [address] #### TAYO #### [address] [address] Sodium [Moles/Vol] 141 mmol/L Normal 136-145 [facility] ([place]) Comment on above: Performed By: #### D YULI, CMP, ADIFF, ESR, CRP, GFR, ANEU, CBC, LIPID #### [place] [address] #### TAYO #### [address] [address] Total Protein 7.4 G/dL Normal 6.4-8.2 [facility] ([place]) Comment on above: Performed By: #### D YULI, CMP, ADIFF, ESR, CRP, GFR, ANEU, CBC, LIPID #### [address] [address] #### TAYO #### [address] [address] Urea nitrogen [Mass/Vol] 15 mg/dL Normal 7-18 [facility] ([place]) Comment on above: Performed By: #### D YULI, CMP, ADIFF, ESR, CRP, GFR, ANEU, CBC, LIPID #### [place] [address] #### TAYO #### [address] [address] CRPon 04-28-2022 CRP [Mass/Vol] mg/L Normal 0.0-0.3 [facility] ([place]) Comment on above: Performed By: #### D YULI, CMP, ADIFF, ESR, CRP, GFR, ANEU, CBC, LIPID #### [place] [address] #### TAYO #### [place] [address] DIMERon 04-28-2023 D-Dimer <200 Normal 0-230 [facility] ([place]) Comment on above: Result Comment: The result of the D-Dimer test should be evaluated in the context of all the clinical and laboratory data available. In those instances where the laboratory result does not agree with the clinical evaluation, additional tests should be performed accordingly. If the D-Dimer result is used to exclude DVT or PE, the recommended cutoff value is less than 230 ng/mL. The D-Dimer result should not be used alone to rule in DVT/PE, but should be used in conjunction with a clinical pretest probability (PTP)assessment model to exclude venous thromboembolism (VTE) in outpatients suspected of deep venous thrombosis (DVT) and pulmonary embolism (PE). Performed By: #### D YULI, CMP, ADIFF, ESR, CRP, GFR, ANEU, CBC, LIPID #### [place] [address] #### TAYO #### [place] [address] ESRon 04-28-2023 Erythrocyte Sed Rate <1 Normal 0-15 [facility] ([place]) Comment on above: Performed By: #### D YULI, CMP, ADIFF, ESR, CRP, GFR, ANEU, CBC, LIPID #### [place] [address] #### TAYO #### [place] [address] LIPIDon 04-28-2023 Cholesterol [Mass/Vol] 152 mg/dL Normal 0-200 [facility] ([place]) Comment on above: Result Comment: Chol esterol Reference Interval: Less than 200 Desirable 200-239 Borderline high risk 240 and above High risk Performed By: #### D YULI, CMP, ADIFF, ESR, CRP, GFR, ANEU, CBC, LIPID ####[place] [address]#### TAYO ####[place] [id number] [place] [id number] Cholesterol in HDL [Mass/Vol] 40 mg/dL Normal 40-60 [facility] ([place]) Comment on above: Performed By: #### D YULI, CMP, ADIFF, ESR, CRP, GFR, ANEU, CBC, LIPID ####[address] [place] [id number]#### TAYO ####[place] [address] Cholesterol in LDL [Mass/Vol] 79 mg/dL Normal 0-130 [facility] ([place]) Comment on above: Performed By: #### D YULI, CMP, ADIFF, ESR, CRP, GFR, ANEU, CBC, LIPID ####[facility] [place] [id number]#### TAYO ####[place] [address] Triglyceride [Mass/Vol] 166 mg/dL High 0-150 [facility] ([place]) Comment on above: Result Comment: Trig lyceride Reference Interval: Less than 150 Normal 150-199 Borderline high risk 200-499 High risk 500 or higher Very high risk Performed By: #### D YULI, CMP, ADIFF, ESR, CRP, GFR, ANEU, CBC, LIPID ####[facility] [place] [id number]#### TAYO ####[place] [address] XR SHOULDER MINIMUM 2 VIEWS LEFTon 04-07-2023 XR SHOULDER MINIMUM 2 VIEWS LEFT ORIGINAL EXAMINATION: 4 XRAY VIEWS OF THE LEFT SHOULDER 04/06/2023 10:26 am COMPARISON: None. HISTORY: ORDERING SYSTEM PROVIDED HISTORY: Reason for Exam: chronic pain and radiculopathy FINDINGS: There is no fracture or dislocation of the left shoulder. The glenohumeral and acromioclavicular joints are normal. There is no osseous lesion of the clavicle, scapula, or proximal left humerus. Adjacent left ribs are intact. There are no periarticular calcifications. IMPRESSION: No radiographic abnormality of the left shoulder. Interpreted by: Vickey Rodríguez MD Preliminary Report By: Vickey Rodríguez MD Electronically signed By Vickey Rodríguez MD Dictated Date: 04/07/2023 4:01:52 AM Prelim Date: 04/07/2023 4:03:38 AM Sign Date: 04/07/2023 4:03:38 AM Ordering Provider: WILL RAMIREZ [facility] ([place]) LABORATORYOrdered By: SYSTEM SYSTEM on 02-17-2023 Albumin BCP dye [Mass/Vol] 4.5 G/dL Invalid Interpretation Code 3.5 - 5.0 G/dL AO ADM SS Albumin/Globulin [Mass ratio] 1.2 {ratio} Invalid Interpretation Code 1.1 - 2.5 ratio AO ADM SS ALP [Catalytic activity/Vol] 75 U/L Invalid Interpretation Code 40 - 135 U/L AO ADM SS ALT With P-5'-P [Catalytic activity/Vol] 19 U/L Invalid Interpretation Code 16 - 63 U/L AO ADM SS AST With P-5'-P [Catalytic activity/Vol] 11 U/L Invalid Interpretation Code 10 - 40 U/L AO ADM SS Bilirubin [Mass/Vol] 0.4 mg/dL Invalid Interpretation Code 0.2 - 1.0 mg/dL AO ADM SS Calcium [Mass/Vol] 9.9 mg/dL Invalid Interpretation Code 8.4 - 10.2 mg/dL AO ADM SS Chloride [Moles/Vol] 102 mmol/L Invalid Interpretation Code 98 - 107 mmol/L AO ADM SS CO2 [Moles/Vol] 30 mmol/L Invalid Interpretation Code 22 - 29 mmol/L AO ADM SS Creatinine [Mass/Vol] 0.88 mg/dL Invalid Interpretation Code 0.70 - 1.30 mg/dL AO ADM SS Electrolyte Balance 9.0 mEq/L Invalid Interpretation Code 4.0 - 15.0 mEq/L AO ADM SS GFR/1.73 sq M.predicted among blacks MDRD (S/P/Bld) [Vol rate/Area] 125 ml/min/1.73sqm Invalid Interpretation Code AO Chemistry S GFR/1.73 sq M.predicted among non-blacks MDRD (S/P/Bld) [Vol rate/Area] 103 ml/min/1.73sqm Invalid Interpretation Code AO Chemistry S Globulin 3.6 G/dL Invalid Interpretation Code AO ADM SS Glucose [Mass/Vol] 92 mg/dL Invalid Interpretation Code 70 - 105 mg/dL AO ADM SS Potassium [Moles/Vol] 4.3 mmol/L Invalid Interpretation Code 3.5 - 5.1 mmol/L AO ADM SS Protein [Mass/Vol] 8.1 G/dL Invalid Interpretation Code 6.4 - 8.2 G/dL AO ADM SS Sodium [Moles/Vol] 141 mmol/L Invalid Interpretation Code 136 - 145 mmol/L AO ADM SS TSH Qn 1.04 m[IU]/L Invalid Interpretation Code 0.36 - 3.74 mcIU/mL AO ADM SS Urea nitrogen [Mass/Vol] 11 mg/dL Invalid Interpretation Code 7 - 18 mg/dL AO ADM SS Urea nitrogen/Creatinine [Mass ratio] 12 ratio Invalid Interpretation Code 7 - 27 ratio AO ADM SS LABORATORYOrdered By: Addi Louis on 02-17-2023 Basophil, Absolute 0.0 103/mcL Invalid Interpretation Code 0.0 - 0.2 10^3/mcL AO Workflow SS Basophils/100 WBC (Bld) 0.3 % Invalid Interpretation Code 0.0 - 2.5 % AO Workflow SS Eosinophil, Absolute 0.1 103/mcL Invalid Interpretation Code 0.0 - 0.4 10^3/mcL AO Workflow SS Eosinophils/100 WBC (Bld) 0.8 % Invalid Interpretation Code 0.0 - 7.0 % AO Workflow SS Erythrocyte distribution width (RBC) [Ratio] 12.8 % Invalid Interpretation Code 11.5 - 14.5 % AO Workflow SS Hematocrit (Bld) [Volume fraction] 47.3 % Invalid Interpretation Code 42.0 - 52.0 % AO Workflow SS Hemoglobin (Bld) [Mass/Vol] 16.0 G/dL Invalid Interpretation Code 14.0 - 18.0 G/dL AO Workflow SS Lymphocyte, Absolute 2.2 103/mcL Invalid Interpretation Code 0.8 - 3.9 10^3/mcL AO Workflow SS Lymphocytes/100 WBC (Bld) 17.2 % Invalid Interpretation Code 10.0 - 50.0 % AO Workflow SS MCH (RBC) [Entitic mass] 29.6 pg Invalid Interpretation Code 27.0 - 31.2 pg AO Workflow SS MCHC 33.9 G/dL Invalid Interpretation Code 31.8 - 35.4 G/dL AO Workflow SS MCV (RBC) [Entitic vol] 87.5 fL Invalid Interpretation Code 80.0 - 94.0 fL AO Workflow SS Monocyte, Absolute 0.6 103/mcL Invalid Interpretation Code 0.2 - 1.0 10^3/mcL AO Workflow SS Monocytes/100 WBC (Bld) 4.9 % Invalid Interpretation Code 1.7 - 13.0 % AO Workflow SS Neutrophil, Absolute 9.9 103/mcL Invalid Interpretation Code 2.9 - 6.2 10^3/mcL AO Workflow SS Neutrophils/100 WBC (Bld) 76.8 % Invalid Interpretation Code 37.0 - 80.0 % AO Workflow SS Platelet mean volume (Bld) [Entitic vol] 9.1 fL Invalid Interpretation Code 7.4 - 10.4 fL AO Workflow SS Platelets (Bld) [#/Vol] 329 103/mcL Invalid Interpretation Code 130 - 400 10^3/mcL AO Workflow SS RBC (Bld) [#/Vol] 5.41 106/mcL Invalid Interpretation Code 4.04 - 6.13 10^6/mcL AO Workflow SS WBC (Bld) [#/Vol] 12.9 103/mcL Invalid Interpretation Code 4.6 - 10.8 10^3/mcL AO Workflow SS Vital Signs Date Time Vital Sign Value Performing Clinician Vidyai veray 04-04-2025 08:35-0400 Body height 172.72 cm Will Ramirez LEATHER STRIPPING MACHINE OPERATOR-C Work Phone: [facility] 04-04-2025 08:35-0400 Body mass index (BMI) [Ratio] 30.4 kg/m2 Will Ramirez LEATHER STRIPPING MACHINE OPERATOR-C Work Phone: [facility] 04-04-2025 08:35-0400 Body temperature 97.5 [degF] Will Ramirez LEATHER STRIPPING MACHINE OPERATOR-C Work Phone: [facility] 04-04-2025 08:35-0400 Body weight 90.71 kg Will Ramirez LEATHER STRIPPING MACHINE OPERATOR-C Work Phone: [facility] 04-04-2025 08:35-0400 Diastolic blood pressure 80 mm[Hg] Will Ramirez LEATHER STRIPPING MACHINE OPERATOR-C Work Phone: [facility] 04-04-2025 08:35-0400 Heart rate 66 /min Will Ramirez LEATHER STRIPPING MACHINE OPERATOR-C Work Phone: [facility] 04-04-2025 08:35-0400 Respiratory rate 18 /min Will Ramseypkins LEATHER STRIPPING MACHINE OPERATOR-C Work Phone: [facility] 04-04-2025 08:35-0400 Systolic blood pressure 120 mm[Hg] Will Ramirez LEATHER STRIPPING MACHINE OPERATOR-C Work Phone: [facility] Encounters Encounter Date Encounter Type Care Provider Facility Start: 04-26-2025 ambulatory Will Ramirez LEATHER STRIPPING MACHINE OPERATOR Facility:[facility] Start: 04-04-2025 End: 04-04-[address] Eliseo Knight MD -[facility] Work Phone: Start: 04-04-2025 End: 04-04-2025 ambulatory Will Ramirez LEATHER STRIPPING MACHINE OPERATOR-C Work Phone: -[facility] Start: 02-18-2025 End: 02-18-2025 Follow-up encounter Freddie Alvarez MD Work Phone: [facility] Comment on above: Chest pain, unspecif ied type (Primary Dx); Intercostal pain Start: 02-18-2025 End: 02-18-2025 ambulatory [facility] Start: 02-15-2025 End: 02-15-2025 ambulatory Will Mike Childress LEATHER STRIPPING MACHINE OPERATOR-C Work Phone: [facility] Work Phone: Start: 02-15-2025 End: 02-15-[address] Freddie Alvarez MD -[facility] Work Phone: Start: 02-15-2025 End: 02-15-2025 ambulatory Will Ramirez LEATHER STRIPPING MACHINE OPERATOR Facility:[facility] Start: 02-11-2025 End: 02-11-2025 Follow-up encounter Freddie Alvarez MD Work Phone: [facility] Comment on above: Chest pain, unspecif ied type (Primary Dx); Intercostal pain; Chest pain, unspecified Start: 02-11-2025 End: 02-11-2025 ambulatory [facility] Start: 02-04-2025 End: 02-04-2025 Follow-up encounter Freddie Alvarez MD Work Phone: [facility] Comment on above: Chest pain, unspecif ied type (Primary Dx); Intercostal pain Start: 02-04-2025 End: 02-04-2025 ambulatory [facility] Start: 01-28-2025 End: 01-28-2025 Follow-up encounter Freddie Alvarez MD Work Phone: [facility] Comment on above: Chest pain, unspecif ied type (Primary Dx); Intercostal pain Start: 01-28-2025 End: 01-28-2025 ambulatory [facility] Start: 01-21-2025 End: 01-21-2025 ambulatory Freddie Alvarez MD Work Phone: [facility] Comment on above: Intercostal pain (Pr imary Dx); Chest pain, unspecified Start: 01-16-2025 End: 04-17-2025 Transcribe Orders Freddie Alvarez MD Work Phone: [facility] Comment on above: Chest pain, unspecif ied (Primary Dx); Pleurisy Start: 01-13-2025 End: 01-13-2025 ambulatory Will Ramirez LEATHER STRIPPING MACHINE OPERATOR-C Work Phone: [facility] Work Phone: Start: 01-13-2025 End: 01-13-[address] Freddie Alvarez MD -Laboratory Work Phone: Start: 01-13-2025 End: 01-13-2025 ambulatory Will Ramirez NP Facility:[facility] Start: 02-23-2024 End: 02-24-2024 ambulatory MONY HATHAWAY WATER POLLUTION CONTROL TECHNICIAN-CAMP BOSS Facility:B Start: 02-23-2024 End: 02-23-2024 Patient encounter procedure MONY HATHAWAY WATER POLLUTION CONTROL TECHNICIAN-CAMP [employer] [facility] Start: 04-28-2023 End: 04-29-2023 ambulatory WILL Analisa JAMES WATER POLLUTION CONTROL TECHNICIAN - [employer] Facility:[facility] Start: 04-06-2023 End: 04-07-2023 ambulatory WILL RAMSEYPKINS WATER POLLUTION CONTROL TECHNICIAN - [employer] Facility:[facility] Start: 04-06-2023 End: 04-06-2023 Patient encounter procedure WILL RAMSEYPKINS WATER POLLUTION CONTROL TECHNICIAN - [employer] [facility] Start: 03-06-2023 End: 03-07-2023 ambulatory WILL Analisa RAMSEYJAMES WATER POLLUTION CONTROL TECHNICIAN - [employer] Facility:B Start: 03-06-2023 End: 03-06-2023 Patient encounter procedure WILL RAMIREZ WATER POLLUTION CONTROL TECHNICIAN - [employer] [facility] Start: 02-17-2023 End: 02-17-2023 Patient encounter procedure WILL RAMSEYPKINS WATER POLLUTION CONTROL TECHNICIAN - [employer]OSS [facility] Procedures Date Procedure Procedure Detail Performing Clinician Start: 02-15-2025 CT of chest without contrast Will Ramirez LEATHER STRIPPING MACHINE OPERATOR-C Work Phone: Tonsillectomy WILL JOSHI WATER POLLUTION CONTROL TECHNICIAN - [employer] Plan of Treatment Date Care Activity Detail Author Start: 2069 RSV Immunization for Adults (1 - 1-dose 75+ series) RSV Immunization for Adults (1 - 1-dose 75+ series) [facility] Start: 2044 Zoster Vaccines (1 of 2) Zoste r Vaccines (1 of 2) [facility] Start: 08-20-2028 DTaP/Tdap/Td Vaccine s (2 - Td or Tdap) DTaP/Tdap/Td Vaccines (2 - Td or Tdap) [facility] Start: 06-05-2025 Influenza vaccination S [facility] Start: 04-04-2025 Evaluation of diagno stic study results [facility] Start: 03-11-2025 End: 03-11-2025 ambulatory 03/11/2025 9:00 AM EDT Evaluation [facility] [address] [place] [phone] Freddie Alvarez MD [address] [place] [address] Micha Dodson, PT [facility] Start: 02-18-2025 End: 02-18-2025 Follow-up encounter [facility] Start: 02-11-2025 End: 02-11-2025 Follow-up encounter 02/11/2025 9:00 AM EDT Follow-Up [facility] [address] [place] [phone] Liliam Sood PTA [facility] Start: 02-04-2025 End: 02-04-2025 Follow-up encounter 02/04/2025 9:15 AM EDT Follow-Up [facility] [address] [place] [phone] [facility] Start: 01-28-2025 End: 01-28-2025 Follow-up encounter 01/28/2025 9:00 AM EDT Follow-Up [facility] [address] [place] [phone] Tadeo Cook PTA [facility] Start: 06-05-2024 COVID-19 Vaccine ( season) COVID-19 Vaccine ( season) [facility] Start: 2013 Hepatitis B Vaccines (1 of 3 - 19+ 3-dose series) Hepatitis B Vaccines (1 of 3 - 19+ 3-dose series) [facility] Start: 2012 Hepatitis C screening Hepatitis C Sc reening [facility] Start: 2007 Varicella vaccination Varicell a Vaccines (1 of 2 - 13+ 2-dose series) [facility] Start: 2006 Depression Screening Depression Scre ening [facility] Start: 1995 MMR Vaccines (1 of 1 - Standard series) MMR Vaccines (1 of 1 - Standard series) [facility] Start: 1994 HIV screening HIV Screening [facility] OUTSIDE PROCEDURE SCAN OUTSIDE P ROCEDURE SCAN Procedures Ordered: 01/16/2025 [facility] Comment on above: Ordered: 01/16/2025 Immunizations Immunization Date Immunization Notes Care Provider Fa kenisha 08-20-2018 tetanus toxoid, redu eric diphtheria toxoid, and acellular pertussis vaccine, adsorbed WILL RAMIREZ WATER POLLUTION CONTROL TECHNICIAN - [employer] [facility] Payers Date Payer Category Payer Self-pay 2019 Blue [facility] Care - [facility] MATHIEU PARKER [id number] 2019 Unknown [id number] 1994 Unknown [id number] 1994 Unknown [id number] 1994 Unknown [id number] [id number] 1994 Unknown [id number] Unknown [id number] [id number] Unknown [id number] Unknown [id number] Unknown [id number] Social History Date Type Detail Facility Start: 12-13-2019 End: 03-27-2025 Tobacco smoking status Ex-smoker (finding) [facility] Sex Assigned At Sex [facility] Work Phone: Start: 01-19-2025 Sex Female (finding) [facility] Start: 1995 Sex Assigned At Male [facility] Start: 1995 Sex assigned at Not on file [facility] Start: 01-16-2025 Sex Male (finding) [facility] Gender identity Not on file [facility] Clinical Notes 06-24-2022 to 04-04-2025 Note Date & Type Note Facility 04-04-2025 Progress note [facility] 04-04-2025 Progress note Note Date/Time April 04, 2025 9:05am [facility] [address] [place] [address]. [address] [place] [address] OFFICE VISIT Date of Service: 04/04/25 MR#: [id number] Acct: [id number] Name: MYNOR TURCIOS Rep #: [id number] : 1995 Provider: Dr. Román Knight MD Age/Sex: 29/M Location: [facility] Status: Signed HPI HPI History of Present Illness Details: This gentleman has no significant past medical history. He has been referred tous for a finding of borderline dilatation of the ascending aorta. The ascendingaorta was noted to be 4 cm on a nondedicated CT of the chest. Patient complains of left-sided chest discomfort for about 2 years now. According to him, it has been constant through all this time. He goes to sleep with it and wakes up with it. It does not exacerbate with activity. Only if hepresses hard on the left side of his chest, it is that his discomfort exacerbates. No associated shortness of breath. For the past year or so, patient has also been complaining of shortness of breath with exertion. He gets short of breath with moderate to strenuous exertion. Denies any orthopnea PND. No ankle edema. Denies any palpitations. He saw pulmonology who started him on a bronchodilator steroid combination inhaler. Per patient, it has not made any difference to his symptoms. Denies any lightheadedness. No syncope or presyncope. Denies any severe headaches. No abdominal pain. No ankle edema. No family history of premature coronary artery disease. No history of aortic disease. Intake Vital Signs 04/04/25 08:35 Height 5 ft 8 in Weight: 200 lb BMI 30.4 BP 120/80 Blood Pressure Location Lt brachial Position Sitting Respiration 18 Pulse 66 Pulse Source Monitor Temp 97.5 F L Intake Visit Reasons: ENLARGED AORTA (SIBILIA) Director Of Instruction Required: No Accompanied by: Self Is patient in pain?: No Allergies No Known Allergies Allergy (Unverified 04/04/25 08:31) Medications ?Medication ?Instructions ?Recorded ?Confirmed ?Type fexofenadine 60 mg tablet (Myesha 60 mg PO BID PRN 04/04/25 History Allergy) fluticasone furoate 200 1 inh inhalation Q24H 04/04/25 History mcg-vilanterol 25 mcg/dose inhalation powder (Breo Ellipta) gabapentin 100 mg capsule 100 mg PO TID 03/27/2504/04 History omeprazole 20 mg capsule,delayed 20 mg PO QDAY 5 04/04/25 History release Have you fallen in the past year?: No PFSH Medical History Allergic rhinitis Enlarged aorta Pleurisy GERD (gastroesophageal reflux disease) Surgical History H/O partial adrenalectomy History of tonsillectomy Family History Father Kidney disease Hypertension Mother Hypertension Hyperlipidemia Alcoholism Social History Smoking Status: Former smoker alcohol intake: current substance use type: does not use caffeine: No ROS Const Const: Negative for fatigue or weakness Eyes Eyes: Negative for change in vision ENT ENT: Negative for dizziness or balance problems Cardio Chest Pain: Yes (pressure left rib area) Frequency: daily Character: other (pressure) Onset: other (continuous) Location: left chest (rib area) Duration: continuous Palpitations: No Edema: None Resp Respiratory: Positive for SOB with activity; Negative for SOB at rest or SOB orthopnea\SOB lying down GI GI: Negative nausea or heartburn Musc Musc: Negative for balance problems Neuro Neuro: Positive for lightheadedness (after activity); Negative for dizziness, near syncope, syncope or weakness Endo Endo: Negative for fatigue Cardiology Exam Exam Narrative Comfortable. No apparent distress. No carotid bruits. Heart sounds 1 and 2 normal. No murmurs or rubs are noted. Chest is clear to auscultation bilaterally. Abdomen is soft. Nontender. No abdominal bruits noted. Alert oriented x 3. No ankle edema. Both radial pulses are equal and symmetrical. Supplemental Info Supplemental Information Labs: No Data to Display Diagnostics: No Data to Display Pulmonary: No Data to Display Past Visits: Cardiology Visit 04/04/25 Assessment and Plan Assessment and Plan (1) Dyspnea on exertion: Status: Chronic Plan: Patient complaining of dyspnea on exertion. Will check an echocardiogram. [place] exercise stress echo. (2) Chest pain: Status: Chronic Plan: Atypical. Noncardiac. Patient counseled. Reassured. Follow-up with PCP (3) Enlarged aorta: Status: Suspected Plan: CT scan reported as showing ascending aorta measuring at 4.0 cm. However these were nongated images. Will repeat CT scan with contrast. Orders: Orders 12 Lead EKG performed by BMS Today I77.89 - Other specified disorders of arteries and arterioles Plan Details Follow Up: 6 Months Coding Level of Care Code Off vis,new,level 4 Diagnoses Dyspnea on exertion R06.09 Chest pain R07.9 Enlarged aorta I77.89 Coding Level of Care Code Off vis,new,level 4 Diagnoses Dyspnea on exertion R06.09 Chest pain R07.9 Enlarged aorta I77.89 Clinical Quality Measures Falls Risk Screening/Assistive Devices Have you fallen in the past year?: No 04/04/25 0905 <Electronically signed by Eliseo Knight MD> Date _ Eliseo nKight MD Cosigner Signature: Date (if applicable) CC: LEATHER STRIPPING MACHINE OPERATOR-Ketan Ramirez ~ [facility] Work Phone: [phone] 821-819005-17-2025 History of Present illness Narrative* Tadeo Cook, AUTO BODY ESTIMATOR - 02/18/2025 9:30 AM EDT Images from the original note were not included. [facility] [place] [facility] AT [address] [place] [address] Dept: [phone] Dept PHYSICAL THERAPY TREATMENT Patient Name: Mynor Turcios : 1995 Date of Service: 02/18/2025 Referring Provider: Freddie Alvarez MD Visit #: 5 Diagnosis: Chest pain, unspecified type Mechanism of injury: insidious onset and worsening of pain Patient Preferences: [facility] Precautions/Red Flags: None Subjective Pt reported he still has pain about twice a week. Stretching is kind of helping. Compliance with HEP: Yes Objective Objective measurements not taken today. Treatment Therapeutic Exercise Therapeutic Exercise Activity 6: warm up Activity 6 Comment: UBE L3 2'/2' Therapeutic Exercise Activity 7: tband updated to HEP Activity 7 Comment: charlie shoulder ER green 3x10, serratus press green 3x10, bent row 2x10 blue Therapeutic Exercise Activity 8: lat pull down CC Activity 8 Comment: 50# 2x10 (allowing for stretch in between reps) Therapeutic Exercise Activity 10: thoracic extension updated to HEP Activity 10 Comment: on gabonese ball 2x10 Home Exercise Program: Progressed home exercise program Assessment Skilled physical therapy interventions utilized to improve patient s impairments and work towards established goals. Patient response to treatment: Progressed and updated HEP this visit. Pt tolerated all activities well. No C/O pain with activity. Slow progress towards improving pain at this time. Patient will benefit from continued physical therapy to meet therapy goals. The rationale for today s treatment was explained to the patient. Verbal cues were provided for correct form with all exercises. Advised patient to continue with Home Exercise Program (HEP). Goals General/Ortho Patient will reduce pain at worst to 2 out of 10 for improved ability to perform HEP (Progressing) Start: 01/21/25 Expected End: 04/22/25 Patient will report at least 50% improvement in breathing with exertion for improved health and wellness prior (Progressing) Start: 01/21/25 Expected End: 04/22/25 Patient will improve PeC, LAT, tricep, flexibility in order to reach and lift further without pain (Progressing) Start: 01/21/25 Expected End: 04/22/25 Patient will be independent with home exercise program (Progressing) Start: 01/21/25 Expected End: 04/22/25 Plan Plan for next session: Recheck with PT. Time Entry Total Treatment Time Start Time: 924 Stop Time: 949 Time Calculation (min): 25 min PT Therapeutic Procedures Time Entry Therapeutic Exercise Time Entry: 25 Tadeo Cook PTA Cosigned by Fatimah Linton PT at 02/18/2025 10:22 AM EDT documented in this [facility]05-15-2025 Radiology Diagnostic study note [facility] Services [address] [place], [place] [id number] Chest without Contrast MR#: [id number] Acct: [id number] Name: MYNOR TURCIOS Rep #: [id number] : 1995 M 29 From: Paulette Petit MD PCP: Will Ramirez, LEATHER STRIPPING MACHINE OPERATOR-C Status: REG CLI Study:Chest without Contrast Date of Exam: 02/15/25 Exam# [id number] Ordering Dr: Freddie Alvarez MD PROCEDURE: CHEST WITHOUT CONTRAST 02/15/2025 REASON FOR EXAM: PLEURISY TECHNIQUE: Chest CT without contrast. Coronal and Sagittal reconstruction series were provided. One or more dose reduction techniques were used (e.g., Automated exposure control, adjustment of the mA and/or kV according to patient size, use of iterative reconstruction technique RADIATION DOSE SUMMARY: CTDlvol: 14.9 mGy DLP: 529 mGycm COMPARISON: None FINDINGS: Lymph nodes: No significant lymphadenopathy. Heart and Vasculature: Normal heart size. No coronary calcification. The ascending thoracic aorta measures 4.0 cm in diameter at the level of the main pulmonary artery. Lungs and Airways: Central airways are clear. Lungs are clear. No pneumothorax. Pleura: No pleural effusion. Upper Abdomen: Unremarkable. Bones: No displaced rib fracture. CT/Chest without Contrast IMPRESSION: 1. No acute cardiopulmonary or osseous abnormality. 2. Ascending thoracic aorta measures 4.0 cm in diameter, which may be overestimated on this nongated exam. Reading Location: [id number] CC: RAMIRO Ramirez; Dr. Freddie Alvarez MD ~ Photoengraving Etcher Apprentice: Signed [facility]05-10-2025 History of Present illness Narrative* Liliam Sood, AUTO BODY ESTIMATOR - 02/11/2025 10:00 AM EDT Images from the original note were not included. [facility] [place] [id number] [place] [address] Dept: [phone] Dept PHYSICAL THERAPY TREATMENT Patient Name: Mynor Turcios : 1995 Date of Service: 02/11/2025 Referring Provider: Freddie Alvarez MD Visit #: 4 Diagnosis: Chest pain, unspecified type Mechanism of injury: insidious onset and worsening of pain Patient Preferences: Mynor Precautions/Red Flags: None Subjective Pt reports 3/10 pain this date Compliance with HEP: Yes Objective Objective measurements not taken today. Treatment Home Exercise Program: Deferred Assessment Skilled physical therapy interventions utilized to improve patient s impairments and work towards established goals. Patient response to treatment: Added open book stretch w/ pec stretch to reduce tightness and discomfort. Pt needs instructions w/ exercises to improve technique and flexibility w/ good follow through. No increased pain reported. Patient will benefit from continued physical therapy to improve flexibility and strength to reduce pain w/ ADLs and to progress towards ST and LTGs The rationale for today s treatment was explained to the patient. Verbal cues were provided for correct form with all exercises. Advised patient to continue with Home Exercise Program (HEP). Goals General/Ortho Patient will reduce pain at worst to 2 out of 10 for improved ability to perform HEP (Progressing) Start: 01/21/25 Expected End: 04/22/25 Patient will report at least 50% improvement in breathing with exertion for improved health and wellness prior (Progressing) Start: 01/21/25 Expected End: 04/22/25 Patient will improve PeC, LAT, tricep, flexibility in order to reach and lift further without pain (Progressing) Start: 01/21/25 Expected End: 04/22/25 Patient will be independent with home exercise program (Progressing) Start: 01/21/25 Expected End: 04/22/25 Plan Plan for next session: strengthening and flexibility as pt tolerates Time Entry Total Treatment Time Start Time: 1000 Stop Time: 1040 Time Calculation (min): 40 min PT Therapeutic Procedures Time Entry Therapeutic Exercise Time Entry: 40 Liliam Sood PTA Cosigned by Micha Dodson PT at 02/11/2025 11:45 AM EDT documented in this [facility]05-03-2025 History of Present illness Narrative* Ninfa Sheppard PTA - 02/04/2025 9:15 AM EDT Images from the original note were not included. [facility] [place] [facility] AT [address] [place] [address] Dept: [phone] Dept PHYSICAL THERAPY TREATMENT Patient Name: Mynor Turcios : 1995 Date of Service: 02/04/2025 Referring Provider: Freddie Alvarez MD Visit #: 3 Diagnosis: Chest pain, unspecified type Mechanism of injury: insidious onset and worsening of pain Patient Preferences: Garth Precautions/Red Flags: None Subjective I am feeling about the same. 2/10 pain right now. Compliance with HEP: Yes Objective Objective measurements not taken today. Treatment Therapeutic Exercise # of Activities: 10 Therapeutic Exercise Activity 6: warm up Activity 6 Comment: UBE L2 2'/2' Therapeutic Exercise Activity 7: standing QL stretch Activity 7 Comment: in doorway 30 x2 Therapeutic Exercise Activity 8: lat pull down CC Activity 8 Comment: 50# 2x10 (allowing for stretch in between reps) Therapeutic Exercise Activity 9: prone Activity 9 Comment: baby cobra hands down x10, shoulder I/T/Y 1x15 2# Therapeutic Exercise Activity 10: Pulldowns Activity 10 Comment: 40# 2x15 Home Exercise Program: Deferred Assessment Skilled physical therapy interventions utilized to improve patient s impairments and work towards established goals. Patient response to treatment: Continued per POC with focus on postural strengthening. Initiated standing pulldowns to further progress strength. Pt responded well to progressions and denied increased pain on conclusion. Patient will benefit from continued physical therapy to decrease pain, improve strength and stabilization, and return to PLOF. The rationale for today s treatment was explained to the patient. Verbal cues were provided for correct form with all exercises. Advised patient to continue with Home Exercise Program (HEP). Goals General/Ortho Patient will reduce pain at worst to 2 out of 10 for improved ability to perform HEP (Progressing) Start: 01/21/25 Expected End: 04/22/25 Patient will report at least 50% improvement in breathing with exertion for improved health and wellness prior (Progressing) Start: 01/21/25 Expected End: 04/22/25 Patient will improve PeC, LAT, tricep, flexibility in order to reach and lift further without pain (Progressing) Start: 01/21/25 Expected End: 04/22/25 Patient will be independent with home exercise program (Progressing) Start: 01/21/25 Expected End: 04/22/25 Plan Plan for next session: Progress stretching and postural strengthening as pt can tolerate. Consider banded wall walks or bilat ER for further postural strengthening. Time Entry Total Treatment Time Start Time: 15 Stop Time: 40 Time Calculation (min): 25 min PT Therapeutic Procedures Time Entry Therapeutic Exercise Time Entry: 25 Ninfa Sheppard PTA Cosigned by Zeinab Winkler PT at 02/04/2025 12:28 PM EDT documented in this [facility]04-26-2025 History of Present illness Narrative* Tadeo Jensengabbi, AUTO BODY ESTIMATOR - 01/28/2025 9:00 AM EDT Images from the original note were not included. [facility] AT [address] [place] [address] Dept: [phone] Dept PHYSICAL THERAPY TREATMENT Patient Name: Mynor Turcios : 1995 Date of Service: 01/28/2025 Referring Provider: Freddie Alvarez MD Visit #: 2 Diagnosis: Chest pain, unspecified type Mechanism of injury: insidious onset and worsening of pain Patient Preferences: Gar Precautions/Red Flags: None Subjective Pt reported he gets relief for a couple hours after performing HEP. Pt reported pressure along L side sib cage today but not painful. Compliance with HEP: Yes Objective Objective measurements not taken today. Treatment Therapeutic Exercise # of Activities: 10 Therapeutic Exercise Activity 6: warm up Activity 6 Comment: UBE L2 2'/2' Therapeutic Exercise Activity 7: standing QL stretch Activity 7 Comment: in doorway 30 x2 Therapeutic Exercise Activity 8: lat pull down CC Activity 8 Comment: 50# 2x10 (allowing for stretch in between reps) Therapeutic Exercise Activity 9: prone Activity 9 Comment: baby cobra hands down x10, shoulder I/T/Y 1x15 2# Home Exercise Program: Deferred Assessment Skilled physical therapy interventions utilized to improve patient s impairments and work towards established goals. Patient response to treatment: Pt was appropriately challenged by progressions and felt QL stretch in doorway was quite effective. L shoulder fatigued quickly with prone shoulder strengthening. HEP was updated with shoulder I/T/Y, baby cobra and QL stretch. Patient will benefit from continued physical therapy to meet therapy goals. The rationale for today s treatment was explained to the patient. Verbal cues were provided for correct form with all exercises. Advised patient to continue with Home Exercise Program (HEP). Goals General/Ortho Patient will reduce pain at worst to 2 out of 10 for improved ability to perform HEP (Progressing) Start: 01/21/25 Expected End: 04/22/25 Patient will report at least 50% improvement in breathing with exertion for improved health and wellness prior (Progressing) Start: 01/21/25 Expected End: 04/22/25 Patient will improve PeC, LAT, tricep, flexibility in order to reach and lift further without pain (Progressing) Start: 01/21/25 Expected End: 04/22/25 Patient will be independent with home exercise program (Progressing) Start: 01/21/25 Expected End: 04/22/25 Plan Plan for next session: Continue with stretching and postural strengthening Time Entry Total Treatment Time Start Time: 901 Stop Time: 927 Time Calculation (min): 26 min PT Therapeutic Procedures Time Entry Therapeutic Exercise Time Entry: 26 Tadeo Cook PTA Cosigned by Catherine Cooper PT at 01/28/2025 9:57 AM EDT documented in this [facility]04-19-2025 History of Present illness Narrative* Micha Dodson, PT - 01/21/2025 10:00 AM EDT Images from the original note were not included. 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 PSHX: Mynor has no past surgical history on file. Have you experienced any anxiety or depression?: No Have you experienced thoughts of self-harm or suicidal thoughts?: No [employer] Reviewed: Yes Physician follow-up appointment?: Yes Subjective Chief Complaint: Mynor says he has been having pressure on the left side of his chest and collarbone. Also down the left side of the rib from the back traveling to the front. Says he has seen a lot of Doctors but they haven't really come up with any reason as to why it hurts. Deep breaths and breathing are the hardest, also will sometimes get shortness of breath from it. Says he was told he is not really using his left side of his lungs due to the pressure being placed on it. This has been going on for about a year and a half now. Pain: Current: 0/10 Best: 0/10 Worst: 3-4/10 Symptoms Relieved by: n/a Prior Level of Function: independent with no difficulty Current Level of Function: is getting short of breath with pain with running, activity takes his mind off of it. Patient s Stated Goal: to get rid of the pain Outcome Measures N/a Objective BACK/RIBS Observation: forward head and slightly rounded shoulders Gait: L Date Recorded: 01/21/2025 Trunk AROM Percentage Flexion (flex) 100 Extension (ext) 100 Right side bending (SBR) 100 Left side bending (SBL) 100 Right rotation (rotR) 100 Left rotation (rotL) 100 SHOULDER Observation: forward head and rounded shoulders Cervical Spine AROM: WFL Elbow AROM: WFL Date Recorded: 01/21/2025 Upper Extremity ROM (degrees) Right Left AROM AROM Shoulder Flexion 165 170 Shoulder Abduction 185 185 Upper Extremity Strength (*pain) Date 01/21/2025 R L Shoulder Flexion 5/5 5/5 Shoulder ABD 5/5 5/5 Shoulder ER 5/5 5/5 Shoulder IR 5/5 5/5 Elbow Flex 5/5 5/5 Elbow Ext 5/5 5/5 Wrist Flex 5/5 5/5 Wrist Ext 5/5 5/5 NT = not tested Scapular Strength Right Left Lower Trapezius 5/5 5/5 Middle Trapezius 5/5 5/5 Joint mobility: reduced thoracic spine and rib mobility via p/a assessment Palpation: tender to palpation at L lat and L T7-12 area paraspinals and cage Flexibility: reduced pec, lat, UT, and triceps flexibility Special Tests: Not indicating Assessment Mynor is a 29 y.o. patient with chief complaint of chest and rib pain as well as difficulty with breathing, who presents with signs and symptoms consistent with referring diagnosis. Mynor presents today with tenderness in the pec rib, and LAT area. He also has tightness in these areas. This could be contributing to increased pressure throughout the thoracic spine and ribs compressing down on the lungs causing difficulty with breathing after exertion. This is impacting his ability to function fully. He would benefit from skilled physical therapy to address decreased range of motion, decreased endurance, pain, soft tissue impairment, and impaired functional activities. Evaluation complexity is low secondary to: patient has 1-2 personal factors and/or comorbidities that will affect plan of care, therapy will be addressing 1-2 elements, and clinical presentation is stable. Body Systems Affected: musculoskeletal and neuromuscular Rehab Potential: Good Learning Preferences: demonstration and explanation Barriers to Rehab: none Goals General/Ortho Patient will reduce pain at worst to 2 out of 10 for improved ability to perform HEP (Initiated) Start: 01/21/25 Expected End: 04/22/25 Patient will report at least 50% improvement in breathing with exertion for improved health and wellness prior (Initiated) Start: 01/21/25 Expected End: 04/22/25 Patient will improve PeC, LAT, tricep, flexibility in order to reach and lift further without pain (Initiated) Start: 01/21/25 Expected End: 04/22/25 Patient will be independent with home exercise program (Initiated) Start: 01/21/25 Expected End: 04/22/25 Plan Frequency and Duration: 1/wk for 4 weeks Therapeutic Contents: client education, group therapy, home exercise program, manual therapy techniques, neuromuscular re-education, therapeutic activities, therapeutic exercise, trigger point dry needle, and modalities as needed Plan for next session: assess HEP response, progress stretching and periscapular strengthening, initiate STM for release of tension Risks and benefits were discussed with the patient and/or family, and the patient and/or family participated with the plan of care and agrees. Treatment Therapeutic Exercise # of Activities: 6 Therapeutic Exercise Activity 1: mid row/pulldown Activity 1 Comment: blue 3x10 Therapeutic Exercise Activity 2: thread the needle Activity 2 Comment: 2x10 Therapeutic Exercise Activity 3: open book Activity 3 Comment: 2x10 Therapeutic Exercise Activity 4: kneeling lat and triceps stretch Activity 4 Comment: 2x30s Therapeutic Exercise Activity 5: active breathing with ribcage expansion and exhale into pec stretch at doorway Activity 5 Comment: x20 Patient Education: muscular support, force distribution Home Exercise Program: Created Time Entry Total Treatment Time Start Time: 1000 Stop Time: 1038 Time Calculation (min): 38 min PT Evaluation Time Entry PT Evaluation (Low) Time Entry: 30 PT Therapeutic Procedures Time Entry Therapeutic Exercise Time Entry: 8 Micha Dodson, PT documented in this [facility]09-20-2022 Evaluation + Plan note Future Scheduled Tests Laboratory* Lipid Profile 06/24/22 * Complete Metabolic Panel 06/24/22 [facility] Evaluation + Plan note Future Appointments Appointment Date:04/24/2023 01:40:00 PM Scheduled Provider:WILL RAMIREZ APRN, CNP Location:[facility] Appointment Type:PC OV Follow Up Future Scheduled Tests Laboratory* Lipid Profile 06/24/22 * Complete Metabolic Panel 06/24/22 [facility] evaluation noteNo assessment information available [facility] Work Phone: Evaluglski note* Diagnosis Intercostal pain- Primary Chest pain, unspecified documented in this encounter [facility] note* Diagnosis Chest pain, unspecified type- Primary Intercostal pain documented in this encounter [facility] note* Diagnosis Chest pain, unspecified type- Primary Intercostal pain [facility] Diagnosis Chest pain, unspecified type- Primary Intercostal pain documented in this encounter [facility] note* Diagnosis Onset Date Resolution Status Admit Date Chest pain chronic April 04, 2025 8:25am Dyspnea on exertion chronic April 04, 2025 8:25am Enlarged aorta suspected April 04, 2025 8:25am [facility] Work Phone: Evalurjoph note* Diagnosis Chest pain, unspecified- Primary Pleurisy Pleurisy without mention of effusion or current tuberculosis [facility] Narrative No data available for this section [facility] Hospital Discharge instructions No data available for this section [facility] Progress note No data available for this section [facility] Reason for referral (narrative)No reason for referral [facility] Work Phone: Reason for visit Narrative* Therapy (Routine) - Authorized Specialty Diagnoses / Procedures Referred By Contac t Referred To Contact Physical Therapy Diagnoses Chest pain, unspecified Procedures [facility] OFF[facility] 60 MINUTES Freddie Alvarez MD [address] [place] [address] Phone: tel: fax: [facility] Therapy at [address] [place] [address] Phone: tel: fax: Referral ID Status Reason Start Date Expiration Date Visits Requested Visits Authorized [id number] Authorized Eval and Treat 01/16/2025 01/11/2026 99 99 [facility] Summary Purpose Family History Relationship Condition Age at Onset Recorded Date/T yvan father Kidney disorder Unknown Hypertension Unknown mother Hypertension Unknown Hyperlipidemia Unknown Alcoholism Unknown No Family History Records Found Advance Directives No Advanced Directives Records FoundNo Advanced Directives Records FoundNo Advanced Directives Records Found Chief Complaint and Reason for Visit Chief Complaint Admit Date PLEURISY February 15, 2025 4:06p m Chief Complaint Admit Date PLEURISY February 15, 2025 4:06p m ENLARGED AORTA (SIBILIA) April 04, 2025 8:25am Reason for Visit Admit Date Chest pain April 04, 2025 8:25a m Dyspnea on exertion April 04, 2025 8:25a m Enlarged aorta April 04, 2025 8:25a m Additional Source Comments Patient Care team informatio n (unrecognized section and content) Team Status: Active Member Role Status Dates Will Ramirez LEATHER STRIPPING MACHINE OPERATOR, LEATHER STRIPPING MACHINE OPERATOR-C Primary Care Provider Active Team Status: Inactive Member Role Status Dates Will Ramirez LEATHER STRIPPING MACHINE OPERATOR, LEATHER STRIPPING MACHINE OPERATOR-C Primary Care Provider Active Start: January 13, 2025 End: January 13, 2025 Dr. Freddie Alvarez MD Attending Provider Active Start: January 13, 2025 End: January 13, 2025 Dr. Freddie Alvarez MD Referring Provider Active Start: January 13, 2025 End: January 13, 2025 Team Status: Inactive Member Role Status Dates Will Ramirez LEATHER STRIPPING MACHINE OPERATOR, LEATHER STRIPPING MACHINE OPERATOR-C Primary Care Provider Active Start: February 15, 2025 End: February 15, 2025 Dr. Freddie Alvarez MD Attending Provider Active Start: February 15, 2025 End: February 15, 2025 Dr. Freddie Alvarez MD Referring Provider Active Start: February 15, 2025 End: February 15, 2025 Team Status: Active Member Role/Relationship Status Dates Will Ramirez LEATHER STRIPPING MACHINE OPERATOR, LEATHER STRIPPING MACHINE OPERATOR-C Primary Care Provider Active Team Status: Inactive Member Role/Relationship Status Dates Will Ramirez LEATHER STRIPPING MACHINE OPERATOR, LEATHER STRIPPING MACHINE OPERATOR-C Primary Care Provider Active Start: January 13, 2025 End: January 13, 2025 Dr. Freddie lAvarez MD Attending Provider Active Start: January 13, 2025 End: January 13, 2025 Dr. Freddie Alvarez MD Referring Provider Active Start: January 13, 2025 End: January 13, 2025 Team Status: Inactive Member Role/Relationship Status Dates Will Ramirez LEATHER STRIPPING MACHINE OPERATOR, LEATHER STRIPPING MACHINE OPERATOR-C Primary Care Provider Active Start: February 15, 2025 End: February 15, 2025 Dr. Freddie Alvarez MD Attending Provider Active Start: February 15, 2025 End: February 15, 2025 Dr. Freddie Alvarez MD Referring Provider Active Start: February 15, 2025 End: February 15, 2025 Team Status: Inactive Member Role/Relationship Status Dates Will Ramirez LEATHER STRIPPING MACHINE OPERATOR, LEATHER STRIPPING MACHINE OPERATOR-C Primary Care Provider Active Start: April 04, 2025 End: April 04, 2025 Will Ramirez LEATHER STRIPPING MACHINE OPERATOR, LEATHER STRIPPING MACHINE OPERATOR-C Referring Provider Ac tive Start: April 04, 2025 End: April 04, 2025 Dr. Eliseo Knight MD Attending Provider Active Start: April 04, 2025 End: April 04, 2025 (unrecognized sect ion and content) No Status Records FoundNo Status Records FoundNo Status Records Found INFORMATION SOURCE (unrecogn ized section and content) DATE CREATED AUTHOR 03/04/2024 [facility] ([place]) DATE CREATED AUTHOR AUTHOR'S ORGANIZ ATION 02/28/2025 [facility] DATE CREATED AUTHOR AUTHOR'S ORGANIZ ATION 04/21/2025 [facility] Goals (unrecognized section and content) Goals may be documented in a n alternate section FOR RECORDS PERTAINING TO PATIENTS WHO ARE OR HAVE BEEN ENROLLED IN A CHEMICAL DEPENDENCY/SUBSTANCEABUSE PROGRAM, SOME INFORMATION MAY BE OMITTED. This clinical summary was aggregated from multiple sources. Caution should be exercised in using it in the provision of clinical care. This summary normalizes information from multiple sources, and as a consequence, information in this document may materially change the coding, format and clinical context of patient data. In addition, data may be omitted in some cases. CLINICAL DECISIONS SHOULD BE BASED ON THE PRIMARY CLINICAL RECORDS. [employer] [facility]. provides no warranty or guarantee of the accuracy or completeness of information in this document.
== END | disposition home or self-care (01) ==
LOC: CT 14:57
PROVIDERS: PCP Nurse Practitioner Family; Referring Provider Internal Medicine Cardiovascular Disease; Visit Provider Internal Medicine Cardiovascular Disease
DX: R07.9 Chest pain, unspecified (principal); R06.09 Other forms of dyspnea; I77.89 Other specified disorders of arteries and arterioles
CPT/HCPCS: 71275; Q9967

== ENCOUNTER → 2025-05-19 | Outpatient (CLI) | payer BC, SELFPAY ==
--- NOTE | 2025-05-19 15:07 | ECHOD_ITS ---
Reason For Study Reason For Study: DILATED AORTA Procedure This was a 2D Doppler, Color Flow transthoracic echocardiogram. Exam performed in department. Left Ventricle Normal LV size. The left ventricular ejection fraction is 60 %. No regional wall motion abnormalities noted. Right Ventricle Normal RV size. Normal systolic function. Atria Normal left atrium. Normal right atrium. Mitral Valve Normal mitral valve. Tricuspid Valve Normal tricuspid valve. Mild tricuspid valve insufficiency. Pulmonary artery systolic pressure is 20 mmHg. Aortic Valve Bicuspid aortic valve. Mild (1+) aortic valve insufficiency. Pulmonic Valve Normal pulmonic valve. Great Vessels Mildly dilated aortic root. The pulmonary artery is normal size. Inferior vena cava collapse with respiration. Pericardium/Pleural No pericardial effusion. MMode/2D Measurements & Calculations LVIDd: 4.6 cm IVSd: 1.1 cm LVOT diam: 2.3 cm LVIDs: 3.0 cm LVPWd: 1.0 cm LVOT area: 4.2 cm2 RVDd: 3.9 cm FS: 35.0 % asc Aorta Diam: 4.2 cm LAV(MOD-bp): 26.6 ml LVAd ap4: 27.5 cm2 LAV(MOD-bp) Indexed: 13.1 ml/m2 LVLd ap4: 8.2 cm LAV(MOD-sp2): 31.7 ml EDV(MOD-sp4): 74.9 ml LAV(MOD-sp4): 21.4 ml EDV(sp4-el): 78.4 ml LVAs ap4: 15.6 cm2 LVLs ap4: 6.9 cm ESV(MOD-sp4): 29.4 ml ESV(sp4-el): 29.5 ml EF(MOD-sp4): 60.8 % EF(sp4-el): 62.3 % LVAd ap2: 29.2 cm2 SV(MOD-sp4): 45.5 ml SV(MOD-sp2): 53.5 ml LVLd ap2: 8.6 cm SI(MOD-sp4): 22.3 ml/m2 SI(MOD-sp2): 26.3 ml/m2 EDV(MOD-sp2): 81.4 ml EDV(sp2-el): 83.6 ml LVAs ap2: 14.7 cm2 LVLs ap2: 6.8 cm ESV(MOD-sp2): 27.9 ml ESV(sp2-el): 27.1 ml EF(MOD-sp2): 65.7 % SV(sp4-el): 48.8 ml Ao sinus diam: 3.[address] Junction: 3.2 cm LA dimension(2D): 3.2 cm LA A4 area: 11.1 cm2 RA A4 area: 10.4 cm2 TAPSE: 1.9 cm Time Measurements MV dec time: 0.19 sec Doppler Measurements & Calculations MV E max enrique: 77.4 cm/sec Lat Peak E' Enrique: 19.1 cm/sec Med Peak E' Enrique: 11.5 cm/sec MV A max enrique: 57.4 cm/sec E/E' lat: 4.1 E/E' med: 6.7 MV E/A: 1.3 MV dec slope: 405.4 cm/sec2 Ao V2 max: 197.5 cm/sec AI max enrique: 489.7 cm/sec Ao max P.6 mmHg AI max P.0 mmHg Ao V2 mean: 143.9 cm/sec AI dec slope: 196.5 cm/sec2 Ao mean P.3 mmHg AI P1/2t: 729.9 msec Ao V2 VTI: 40.0 cm AV (velocity ratio): 0.56 SILVANA(I,D): 2.4 cm2 SILVANA(V,D): 2.2 cm2 LV V1 max: 105.0 cm/sec SV(LVOT): 94.1 ml PA V2 max: 108.5 cm/sec LV V1 max P.4 mmHg LV V1 mean P.5 mmHg LV V1 mean: 74.2 cm/sec LV V1 VTI: 22.4 cm TR max enrique: 203.9 cm/sec TR max P.6 mmHg ECHO/Echo Complete Interpretation Summary Normal LV size. The left ventricular ejection fraction is 60 %. Bicuspid aortic valve. Mildly dilated aortic root. Mild (1+) aortic valve insufficiency. Ordering Physician: Eliseo Knight Referring Physician: Eliseo Knight MD Performed By: Regina Burnett RDCS
== END | disposition home or self-care (01) ==
LOC: CVS 15:03
PROVIDERS: PCP Nurse Practitioner Family; Referring Provider Internal Medicine Cardiovascular Disease; Visit Provider Internal Medicine Cardiovascular Disease
DX: I77.89 Other specified disorders of arteries and arterioles (principal); R07.9 Chest pain, unspecified; R06.09 Other forms of dyspnea
CPT/HCPCS: 93306